=== PATIENT | male | born 1950 | race African-American/Black ===

== ENCOUNTER 2017-05-23 18:40 | Inpatient (IN) ==
[2017-05-23] MEDS ORDERED: ONDANSETRON 4 MG/2 ML VIAL IV STA (19:19)
[2017-05-23] MEDS ORDERED: SODIUM CHLORIDE 0.9% 500 ML IV STA (19:19)
[2017-05-23] MEDS ORDERED: HYDROmorphone 2 MG/1 ML VIAL IV STA (19:19)
[2017-05-23] MEDS ORDERED: PANTOPRAZOLE 40 MG VIAL IV STA (19:19)
[2017-05-23] MEDS ORDERED: cefTRIAXone 1,000 MG in SODIUM CHLORIDE 0.9% 100 ML IV STA (19:19)
--- NOTE | 2017-05-23 19:45 | Emergency Department Note ---
Chhaya Mondragon Rolonda, am scribing for, and in the presence of, Josr Greer MD 19:22. Percy Mondragon Charles R, MD, personally performed the services described in this documentation, ascribed by Fanny Shaver in my presence, and it is both accurate and complete 945 . Arrival - Arrival Chief Complaint: Abdominal / Flank Pain Stated Complaint: nausea/stomach cramps/sweating ED Nursing Triage Note: patient to triage with c/o of lower abdominal pain with nausea, denies vomiting, last bm 2 days ago. low back pain that started 15 min prior to triage. was seen by dr pritchett at [facility] [place] on fri and dx with an ulcer. Mode of Arrival: Wheelchair Limitations: No Limitations Source: Patient, Old Records Reviewed, RN Notes Reviewed Time Seen by Provider: 05/23/17 19:07 - History of Present Illness HPI Narrative: Pt is a 67 y/o male who presents to the ED via wheelchair with c/o lower abdominal pain with an onset of days ago. Pt has a PMHx of DM, Stomach ulcer, and aneurysm of the stomach; has a PSHx of Orthopedic surgery. Pt stated that he f/u with his PCP on the aneurysm months ago. He has associated sxs of back pain. He denied vomiting and constipation but confirms that last BM was x1 day ago. No other complain/pain in ED. Onset (ago): day(s) Consistency: constant Severity: moderate Severity scale (1-10): 4 Allergies/Adverse Reactions: Allergies Allergy/AdvReac Type Severity Reaction Status Date / Time lisinopril Allergy Swelling Verified 08/04/15 06:44 of Lip/Tongue/Throat Home Medications: Home Medications Medication Instructions Recorded Confirmed Type Insulin Glargine [Lantus] 40 unit SUBCUT BEDTIME 08/03/15 05/23/17 History Methadone 5 mg PO BID 08/03/15 05/23/17 History Omeprazole [Prilosec] 40 mg PO DAILY 08/03/15 05/23/17 History Dicyclomine HCl 10 mg PO TID PRN 05/23/17 05/23/17 History Gabapentin 300 mg PO TID 05/23/17 05/23/17 History Ibuprofen Tab [Motrin Tab] 800 mg PO Q8H PRN 05/23/17 05/23/17 History Losartan/Hydrochlorothiazide 1 each PO DAILY 05/23/17 05/23/17 History [Losartan-Hctz 100-25 mg Tab] Metformin HCl 1,000 mg PO BID 05/23/17 05/23/17 History Pravastatin Sodium 20 mg PO QPM 05/23/17 05/23/17 History hydrALAZINE TAB [Apresoline Tab] 50 mg PO TID PRN 05/23/17 05/23/17 History methIMAzole [Methimazole] 2.5 mg PO DAILY 05/23/17 05/23/17 History Review of System - Review of System 12 point system: reviewed and no additional remarkable complaints except as stated - Review of System Constitutional: Absent: chills, fever Eyes: Absent: pain Head/Ears/Nose/Throat: Absent: earache Respiratory: Absent: cough, respiratory distress Cardiovascular: Absent: chest pain, palpitations, dyspnea on exertion Gastrointestinal: Present: abdominal pain. Absent: nausea, vomiting Genitourinary male: Absent: urgency Musculoskeletal: Present: back pain. Absent: arm pain, leg pain, neck pain Skin: Absent: rash Neurological: Absent: headache, weakness Medical,Surgical,& Family Hx - Medical History Cardio: History of: Hypertension Psychological: No history of: Violent Behavior Neurology: No history of: Seizures Endocrine: History of: Diabetes Mellitus (IDDM) Gastrointestinal: History of: GERD, GI Problems (h/o gastric ulcer) Musculoskeletal: History of: Back/Neck Problems Hematology: No history of: Blood Transfusion Reaction Other: No history of: Anesthesia Reactions, Cancer - Surgical History Cardiac Surgeries: Patient Denies: Cardiac Catheterization HEENT Surgeries: Surgical HX of: Thyroid Surgery Patient denies: Tonsilectomy & Adenoidectomy Reproductive Surgeries: Patient denies;: Genitourinary Surgery Orthopedic Surgeries: Surgical HX of;: Orthopedic Surgery (disk surgery on back and neck) - Family History Family History: Denies;: Family Cancer - Social History Smoking Status: Unknown if ever smoked Frequency of Alcohol Use: None Type of Drug Use: None Exam Vital Signs: Vital Signs Temperature 101.6 F H 05/23/17 18:51 Pulse Rate 88 05/23/17 18:51 Respiratory Rate 20 05/23/17 18:51 Blood Pressure 129/70 05/23/17 18:51 O2 Sat by Pulse Oximetry 94 L 05/23/17 18:51 - General General appearance: alert, in no apparent distress - Head Head exam: Present: atraumatic, normocephalic - Eye Eye exam: Present: PERRL, EOMI - ENT ENT exam: Present: mucous membranes moist. Absent: mucous membranes dry - Neck Neck exam: Present: full ROM. Absent: tenderness - Chest Chest inspection: Present: symmetric chest wall rise. Absent: tenderness - Respiratory Respiratory exam: Present: normal lung sounds bilaterally. Absent: wheezes - Cardiovascular Cardiovascular exam: Present: regular rate, normal rhythm, normal heart sounds. Absent: bradycardia - Abdominal Exam Abdominal exam: Present: soft, tenderness (lower abdominal tenderness on both sides), normal bowel sounds - Extremities Exam Extremities exam: Present: full ROM. Absent: tenderness - Back Exam Back exam: Present: full ROM. Absent: normal inspection (scars on back from previous surgery), tenderness - Neurological Exam Neurological exam: Present: alert, oriented X3, CN II-XII intact - Psychiatric Psychiatric exam: Present: normal affect, normal mood - Skin Skin exam: Present: warm, dry, intact, normal color. Absent: rash Course - Consultations Consultation #1: Hospitalist will admit patient Time: 22:28 Results - Labs CBC & BMP: 05/23/17 20:10 05/23/17 20:10 Lab Results: I have reviewed the patients labs Labs: Laboratory Tests 05/23/17 20:20 Urine pH 5.0 Ur Specific [place] 1.036 H Urine Protein 30 Urine Glucose (UA) Negative Urine Ketones 5 Urine Blood Small Urine Nitrate Negative Urine Bilirubin Negative Urine Urobilinogen < 2.0 H Urine Leukocytes Negative Urine RBC 2 Urine WBC <1 Urine Mucus Occasional Ur Culture Indicated? Not indicated Laboratory Tests 05/23/17 20:10 Sodium 137 Potassium 4.2 Chloride 99 Carbon Dioxide 25 Anion Gap 17.2 H BUN 26 H GFR Calculation 82 BUN/Creatinine Ratio 21.00 H Glucose 212 H Albumin 2.8 L Globulin 4.0 H Albumin/Globulin Ratio 0.7 L - Diagnostic Findings Procedure: Abdominal x-ray: report reviewed by me (No acute abnormality.), Chest x-ray: report reviewed by me (Right perihilar infiltrate. This will need to be followed until clearing.), CT Abdomen and Pelvis: report reviewed by me ( 1. Distal abdominal aortic aneurysm, containing mixed plaque, measuring 3.6 cm in maximum diameter. 2. Enlarged prostate gland, heterogeneous. 3. Ill-defined area of low density adjacent to the gallbladder fossa. This does not appear to be cystic. This could represent an infiltrating mass, a vascular mass, or an area of focal fatty infiltration.) Disposition Clinical Impression: Fever, Abdominal pain, Right lower lobe pneumonia Case discussed with: patient, patient's family Disposition: Still a Patient Condition: Stable Time of Disposition: 22:29
[2017-05-23] MEDS ORDERED: PANTOPRAZOLE 40 MG VIAL IV ONE (19:48)
[2017-05-23] MEDS ORDERED: SODIUM CHLORIDE 0.9% 100 ML IV ONE (19:48)
[2017-05-23] MEDS ORDERED: ONDANSETRON 4 MG/2 ML VIAL ONE (19:48)
[2017-05-23] MEDS ORDERED: cefTRIAXone 1,000 MG VIAL ONE (19:48)
[2017-05-23] MEDS ORDERED: HYDROmorphone 2 MG/1 ML VIAL ONE (19:48)
--- NOTE | 2017-05-23 20:00 | CT Report ---
CT of the abdomen and pelvis with intravenous contrast. 100 cc Omni 350. No oral contrast administered. Indication: Generalized abdominal and pelvic pain. Axial images with sagittal and coronal reconstructions. No previous. The CT exam was performed using one or more of the following dose reduction techniques: Automated exposure control, adjustment of the mA and/or kV according to patient size, or use of iterative reconstruction technique. The heart is enlarged. There is coronary artery calcification. There are areas of scarring present within the lung bases. There is no pericardial or pleural effusion. Calcified lymph nodes are seen within the hilar and mediastinal regions. There is fatty infiltration of the liver. The liver size is normal. Adjacent to the gallbladder, there is an irregular mixed density area, nonspecific, measuring 15 x 20 mm. No adrenal enlargement is seen. No splenic abnormality is identified. The kidneys are normal in size, location, and contour. No hydronephrosis. No space-occupying masses. The urinary bladder presents a normal appearance. The prostate gland is enlarged and enhances heterogeneously. It measures 5.7 cm. It contains calcification. Prominent degenerative changes are noted within the spinal column, with pronounced degenerative endplate changes at L2-L3, a mild superior endplate compression fracture of L1, and diffusion across the disc space at L4-L5. 055 The pancreas is partially fatty replaced. There is calcific plaque present within the proximal abdominal aorta, extending into the origins of the celiac, SMA, and renal arteries. There is a distal abdominal aortic aneurysm. It measures 3.5 cm in the AP dimension and 3.6 cm in the transverse dimension. Within the retroperitoneum, adjacent to the aorta, multiple shotty lymph nodes are present. The common iliac arteries are also dilated, the right measuring 13 mm, and the left measuring 15 mm. Calcific plaque extends to the femoral arteries. No free air or free fluid is seen within the peritoneal cavity. The gastric contour is grossly normal. The loops of small intestine are not dilated. The terminal ileum and appendix present a normal appearance. The colon is not dilated. No colonic wall thickening. No diverticulosis or diverticulitis. Impression: 1. Distal abdominal aortic aneurysm, containing mixed plaque, measuring 3.6 cm in maximum diameter. 2. Enlarged prostate gland, heterogeneous. 3. Ill-defined area of low density adjacent to the gallbladder fossa. This does not appear to be cystic. This could represent an infiltrating mass, a vascular mass, or an area of focal fatty infiltration. PROCEDURE INTERPRETED AT [facility] DEPARTMENT OF RADIOLOGY Final Report Signed by: Dr. Leora Crenshaw
--- NOTE | 2017-05-23 20:00 | XRay Report ---
Portable chest. Indication: Abdominal pain. Comparison: September 27, 2011. The heart is normal in size. There is calcific plaque present within the aortic knob. The pulmonary vasculature is normal. There is a right perihilar infiltrate. No pneumothorax or pleural effusion. Surgical clips in the right neck. Impression: Right perihilar infiltrate. This will need to be followed until clearing. PROCEDURE INTERPRETED AT [facility] DEPARTMENT OF RADIOLOGY Final Report Signed by: Dr. Leora Crenshaw
--- NOTE | 2017-05-23 20:01 | XRay Report ---
2 view abdomen. Indication: Abdominal pain. The heart is enlarged. The liver and spleen are normal in size. Contrast material is seen within the collecting systems and urinary bladder. There is mass effect on the bladder from the prostate gland. The bowel gas pattern is normal. Degenerative changes are present within the spinal column. Impression: No acute abnormality. PROCEDURE INTERPRETED AT [facility] DEPARTMENT OF RADIOLOGY Final Report Signed by: Dr. Leora Crenshaw
[2017-05-23 20:24] LABS: Basophils % 0.1 % (0.0-0.8); Eosinophils % 0.1 % (0.00-10.9); Hematocrit 31.3 VOL% (42.0-52.0); Hemoglobin 10.2 GM/DL (14.0-18.0); Immature Granulocytes % 0.4 %; Immature Granulocytes Absolute 0.04 #; Lymphocytes # 1.3 10*3/uL (1.4-4.0); Lymphocytes % 13.4 % (21.2-54.2); Mean Corpuscular HGB Conc 32.6 GM/DL (32-36); Mean Corpuscular Hemoglobin 25 PG (27-34); Mean Corpuscular Volume 76.5 FL (87-102); Mean Platelet Volume 10.4 FL (9.6-12.0); Monocytes # 0.8 10*3/uL (0.11-0.8); Monocytes % 7.7 % (1.7-12.7); Neutrophils # 7.6 10*3/uL (1.4-7.4); Neutrophils % 78.3 % (38.7-73.9); Platelet Count 249 T/CUMM (130-400); Red Blood Count 4.09 MC/CUMM (3.8-5.5); Red Cell Distribution Width 14.2 % (9.3-17.3); White Blood Count 9.7 T/CUMM (4-12)
--- NOTE | 2017-05-23 20:27 | EKG Report ---
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
[2017-05-23 20:31] LABS: Apearance,Urine CLEAR (Clear); Bilirubin,Urine Negative (Negative); Blood, Urine Small mg/dL (Negative); Glucose,Urine (UA) Negative (Negative); Ketones,Urine 5 mg/dL (Negative); Mucus,Urine Occasional /LPF (Occasional); Nitrite,Urine Negative (Negative); Protein,Urine 30 MG/DL; RBC,Urine 2 /HPF (0-4); Urine Color Yellow (Yellow); Urine Specific Gravity 1.036 (1.001-1.035); Urine Urobilinogen < 2.0 EU/DL (0.2-1.0); WBC,Urine <1 /HPF (0-6)
[2017-05-23 20:57] LABS: Lactic Acid 1.5 MMOL/L (0.4-2.0)
[2017-05-23 20:58] LABS: Alanine Aminotransferase 26 U/L (16-61); Albumin 2.8 G/DL (3.4-5.0); Alkaline Phosphatase 97 U/L (45-117); Amylase 28 U/L (25-115); Aspartate Amino Transferase 35 U/L (0-37); Blood Urea Nitrogen 26 MG/DL (7-18); Calcium 8.9 MG/DL (8.5-10.1); Glucose 212 MG/DL (74-106); Magnesium 1.9 MG/DL (1.8-2.4); Osmolality,Calculated 283.8 MOS/KG (273-304); Potassium 4.2 MMOL/L (3.5-5.1); Sodium 137 MMOL/L (136-145); Total Protein 6.8 G/DL (6.4-8.3); Troponin I Only < 0.015 NG/ML (0.00-0.045)
[2017-05-23] MEDS ORDERED: ONDANSETRON 4 MG/2 ML VIAL IV PRN (23:07)
[2017-05-23] MEDS ORDERED: DEXTROSE 50% 25 GM/50 ML VIAL IV PRN (23:07)
[2017-05-23] MEDS ORDERED: GLUCAGON 1 MG VIAL IM PRN (23:07)
--- NOTE | 2017-05-23 23:27 | Hospitalist History & Physical ---
<Dakotah Gutierrez - Last Filed: 05/23/17 23:17> Assessment and Plan - Time spent with patient Time spent with patient: Less than 30 minutes (1) Abdominal pain Status: Acute Current Visit: Yes Qualifiers: Abdominal location: lower abdomen, unspecified Qualified Code(s): R10.30 - Lower abdominal pain, unspecified (2) Fever Status: Acute Current Visit: Yes Qualifiers: Fever type: unspecified Qualified Code(s): R50.9 - Fever, unspecified (3) Right lower lobe pneumonia Status: Acute Assessment and plan: The patient will be admitted inpatient to the medical surgical unit under the service of hospitalist. Laboratory findings and physical exam at time of admission. The patient to have Coumadin the patient stay. He will be rehydrated with normal saline at 100 mils an hour, will perform Accu-Cheks before meals and at bedtime with supplemental sliding scale continue his home Lantus 40 units nightly, will continue Rocephin 1 g IV daily and accommodation azithromycin 500 g IV daily. Blood cultures have been obtained. Vital signs every 4 hours. Home medications have been reconciled appropriately. Current Visit: Yes Qualifiers: Pneumonia type: due to unspecified organism Qualified Code(s): J18.1 - Lobar pneumonia, unspecified organism (4) Dehydration Status: Acute Current Visit: Yes History of Present Illness Chief complaint: ABD pain/Fever/SOB History of present illness: Mr. Casillas is a 67 year old male -Gabones[place] male with past medical history of diabetes, aortic aneurysm of the stomach, stomach ulcers, diabetic neuropathy , hypertension, and back surgery presents to the ED today with chief complaint of lower abdominal pain, fever, and shortness of breath. He reports Friday he began having chills and was able to get warm. He indicates that it has progressed all week having chills waking up sweating and waxing and waning shortness of breath. He reports he follows up outpatient for his aneurysm has a CT scan performed once a year. He denies nausea, vomiting, diarrhea, or constipation. He also reports that he has chest pain with deep inspiration mainly on the right side. Denies aggravating or relieving factors to this lower abdominal pain. He describes it as just a "irritating pain". Initial evaluation ED includes a chest x-ray this reveals right perihilar infiltrate, WBCs 9.7, BUN 26, glucose 212, albumin 2.8, UA benign, CT of the abdomen reveals distal abdominal aortic aneurysm measuring 3.6 cm in diameter, enlarged prostate, and ill-defined area of low density adjacent to the gallbladder fossa. The patient was initially treated in the ED with Rocephin 1 g IV along with 500 mL normal saline bolus. He will be admitted to the MedSurg unit under service of the hospitalist for further evaluation treatment. Home Medications Medication Instructions Recorded Confirmed Type Insulin Glargine [Lantus] 40 unit SUBCUT BEDTIME 08/03/15 05/24/17 History Methadone 5 mg PO BID 08/03/15 05/24/17 History Omeprazole [Prilosec] 40 mg PO DAILY 08/03/15 05/24/17 History Dicyclomine HCl 10 mg PO TID PRN 05/23/17 05/24/17 History Gabapentin 300 mg PO TID 05/23/17 05/24/17 History Ibuprofen Tab [Motrin Tab] 800 mg PO Q8H PRN 05/23/17 05/24/17 History Losartan/Hydrochlorothiazide 1 each PO DAILY 05/23/17 05/24/17 History [Losartan-Hctz 100-25 mg Tab] Metformin HCl 1,000 mg PO BID 05/23/17 05/24/17 History Pravastatin Sodium 20 mg PO QPM 05/23/17 05/24/17 History hydrALAZINE TAB [Apresoline Tab] 50 mg PO TID PRN 05/23/17 05/24/17 History methIMAzole [Methimazole] 2.5 mg PO DAILY 05/23/17 05/24/17 History Allergies Allergy/AdvReac Type Severity Reaction Status Date / Time lisinopril Allergy Swelling Verified 08/04/15 06:44 of Lip/Tongue/Throat Medical,Surgical,& Family Hx - Medical History Cardio: History of: Hypertension Psychological: No history of: Violent Behavior Neurology: No history of: Seizures Endocrine: History of: Diabetes Mellitus (IDDM) Gastrointestinal: History of: GERD, GI Problems (h/o gastric ulcer) Musculoskeletal: History of: Back/Neck Problems Hematology: No history of: Blood Transfusion Reaction Other: No history of: Anesthesia Reactions, Cancer - Surgical History Cardiac Surgeries: Patient Denies: Cardiac Catheterization HEENT Surgeries: Surgical HX of: Thyroid Surgery Patient denies: Tonsilectomy & Adenoidectomy Reproductive Surgeries: Patient denies;: Genitourinary Surgery Orthopedic Surgeries: Surgical HX of;: Orthopedic Surgery (disk surgery on back and neck) - Family History Family History: Reports;: Family Diabetes, Family Hypertension Denies;: Family Cancer - Social History Smoking Status: Former smoker Have you smoked in the last 12 months: No Frequency of Alcohol Use: None Type of Drug Use: None Marital Status: Lives With:: Spouse Functional capacity: uses cane/walker - Constitutional Constitutional: Present: fever(s), night sweats - Cardiovascular Cardiovascular: Present: dyspnea on exertion - Gastrointestinal Gastrointestinal: Present: as per HPI, abdominal pain Exam - Constitutional Vitals: Period Temp Pulse Resp BP Sys/Mccormack Pulse Ox Last 24 Hr 101.6 F-101.6 F 88-88 20-20 129-129/70-70 94 Results - Labs CBC & BMP: 05/23/17 20:10 05/23/17 20:10 Lab Results: I have reviewed the past 24 hour labs - Diagnostic Findings Procedure: Abdominal x-ray: report reviewed by me, Chest x-ray: report reviewed by me, CT Abdomen and Pelvis: report reviewed by me <Romulo Renee - Last Filed: 05/24/17 01:45> History of Present Illness History of present illness: Mr. Casillas is a 67 year old male Exam - Constitutional Vitals: Period Temp Pulse Resp BP Sys/Mccormack Pulse Ox Last 24 Hr 97.2 F-101.6 F 68-88 18-20 129-134/70-77 92-98 General appearance: normal weight - Head Head exam: Present: normal inspection - Eye Eye exam: Present: EOMI Pupils: Present: ELIZABETH - ENT ENT exam: Present: normal exam - Neck Neck exam: Present: normal inspection - Respiratory Respiratory exam: Present: clear to auscultation bilaterally - Cardiovascular Cardiovascular exam: Present: regular rate and rhythm - GI/Abdominal GI/Abdominal exam: Present: normal bowel sounds - Extremities Exam Extremities exam: Present: normal inspection - Back Exam Back exam: Present: normal inspection - Neurological Exam Neurological exam: Present: alert - Psychiatric Psychiatric exam: Present: normal affect - Skin Skin exam: Present: normal color Results - Labs CBC & BMP: 05/23/17 20:10 05/23/17 20:10
[2017-05-24] MEDS: ACETAMINOPHEN 325 MG TABLET PO PRN ×2 (00:31→18:09)
[2017-05-24] MEDS: SODIUM CHLORIDE 0.9% 1,000 ML IV SCH ×2 (00:32→11:42)
[2017-05-24] MEDS: AZITHROMYCIN INJ 500 MG in SODIUM CHLORIDE 0.9% 250 ML IV SCH (00:33)
[2017-05-24 06:29] LABS: Basophils % 0.2 % (0.0-0.8); Eosinophils % 0.1 % (0.00-10.9); Hematocrit 28.8 VOL% (42.0-52.0); Hemoglobin 9.2 GM/DL (14.0-18.0); Immature Granulocytes % 0.4 %; Immature Granulocytes Absolute 0.03 #; Lymphocytes # 1.8 10*3/uL (1.4-4.0); Mean Corpuscular HGB Conc 31.9 GM/DL (32-36); Mean Corpuscular Hemoglobin 25 PG (27-34); Mean Corpuscular Volume 76.6 FL (87-102); Mean Platelet Volume 10.1 FL (9.6-12.0); Monocytes # 0.8 10*3/uL (0.11-0.8); Monocytes % 9.8 % (1.7-12.7); Neutrophils # 5.5 10*3/uL (1.4-7.4); Neutrophils % 67.5 % (38.7-73.9); Platelet Count 229 T/CUMM (130-400); Red Blood Count 3.76 MC/CUMM (3.8-5.5); Red Cell Distribution Width 14.2 % (9.3-17.3); White Blood Count 8.1 T/CUMM (4-12)
[2017-05-24 07:08] LABS: Albumin 2.5 G/DL (3.4-5.0); Bilirubin,Total 0.7 MG/DL (0.2-1.0); Calcium 8.6 MG/DL (8.5-10.1); Osmolality,Calculated 283.5 MOS/KG (273-304); Potassium 3.9 MMOL/L (3.5-5.1); Total Protein 6.2 G/DL (6.4-8.3)
[2017-05-24] MEDS: METHADONE 10 MG TABLET PO SCH ×2 (08:29→21:24)
[2017-05-24] MEDS: methIMAzole 5 MG TABLET PO SCH (08:30)
[2017-05-24] MEDS: GABAPENTIN 300 MG CAPSULE PO SCH ×3 (08:31→21:25)
[2017-05-24] MEDS: PANTOPRAZOLE 40 MG TABLET PO SCH (08:31)
[2017-05-24] MEDS: INSULIN REGULAR 100 UNIT/ML SUBCUT SCH ×4 (08:32→21:24)
[2017-05-24] MEDS: ENOXAPARIN 40 MG/0.4 ML SYRINGE SUBCUT SCH (08:33)
[2017-05-24] MEDS ORDERED: LOSARTAN/HCTZ 50-12.5 MG TABLET PO SCH (09:00)
[2017-05-24] MEDS: DICYCLOMINE 10 MG CAPSULE PO PRN (11:41)
--- NOTE | 2017-05-24 12:00 | Hospitalist Progress Note ---
Assessment and Plan (1) Right lower lobe pneumonia Status: Acute Assessment and plan: Continue azithromycin and Rocephin, will start duo nebs Current Visit: Yes Qualifiers: Pneumonia type: due to unspecified organism Qualified Code(s): J18.1 - Lobar pneumonia, unspecified organism (2) AAA (abdominal aortic aneurysm) Status: Acute Assessment and plan: incidentally noted on abd ct. will need to be monitored and repair when greater than five cm, currently 3.6 cm Current Visit: Yes (3) Dehydration Status: Acute Assessment and plan: Remove the hydrochlorothiazide out of his blood pressure medicines, cont gentle hydration Current Visit: Yes (4) Hypertension Status: Acute Assessment and plan: change to losartan 100 mg daily Current Visit: Yes (5) Chronic pain Status: Acute Assessment and plan: Continue methadone 5 mg twice daily Current Visit: Yes (6) Insulin dependent diabetes mellitus Status: Acute Assessment and plan: Hemoglobin A1c, continue insulin sliding scale, continue Lantus 40 units at bedtime Current Visit: Yes (7) Hyperthyroidism Status: Acute Assessment and plan: cont tapezole, check tsh and free T4. Current Visit: Yes Hospitalist: Subjective Interval history: Patient's says he has not been eating much but that is most likely due to him being sick. Exam - Constitutional Vitals: Period Temp Pulse Resp BP Sys/Mccormack Pulse Ox Last 24 Hr 97.0 F-101.6 F 52-88 18-20 129-155/61-81 92-98 Exam: Heart Rate-[RRR] Lungs-[rhonchi on right and diminished GI-[+bs soft, NT] Ext-[no edema] Neuro [Motor 5/5], [alert and oriented times 3] psych [normal mood and flat affect] General [no acute distress] Results - Labs CBC & BMP: 05/24/17 05:39 05/24/17 05:39 Lab Results: I have reviewed the past 24 hour labs - Diagnostic Findings Procedure: Chest x-ray: report reviewed by me (Right perihilar infiltrate), CT Abdomen and Pelvis: report reviewed by me (Distal aortic aneurysm measuring 3.6 cm, enlarged prostate)
[2017-05-24 12:34] LABS: Free T4 (Free Thyroxine) 1.35 NG/DL (0.76-1.46); Thyroid Stimulating Hormone 1.78 uIU/ml (0.358-3.74)
[2017-05-24] MEDS: ALBUTEROL/IPRATROPIUM 3 ML NEB RESP TX SCH ×2 (13:46→19:30)
[2017-05-24] MEDS: SODIUM CHLORIDE 0.45% 1,000 ML IV SCH (18:07)
[2017-05-24] MEDS ORDERED: INSULIN GLARGINE 100 UNIT/ML SUBCUT SCH (21:00)
[2017-05-24] MEDS: cefTRIAXone 1,000 MG in SODIUM CHLORIDE 0.9% 100 ML IV SCH (21:21)
[2017-05-24] MEDS: PRAVASTATIN 20 MG TABLET PO SCH (21:25)
[2017-05-25] MEDS: AZITHROMYCIN INJ 500 MG in SODIUM CHLORIDE 0.9% 250 ML IV SCH
[2017-05-25] MEDS: ALBUTEROL/IPRATROPIUM 3 ML NEB RESP TX SCH ×4 (01:04→18:55)
[2017-05-25] MEDS: SODIUM CHLORIDE 0.45% 1,000 ML IV SCH ×2 (07:35→08:38)
[2017-05-25] MEDS: PANTOPRAZOLE 40 MG TABLET PO SCH (08:39)
[2017-05-25] MEDS: LOSARTAN 50 MG TABLET PO SCH (08:39)
[2017-05-25] MEDS: ENOXAPARIN 40 MG/0.4 ML SYRINGE SUBCUT SCH (08:39)
[2017-05-25] MEDS: methIMAzole 5 MG TABLET PO SCH (08:39)
[2017-05-25] MEDS: METHADONE 10 MG TABLET PO SCH ×2 (08:41→21:36)
[2017-05-25] MEDS: GABAPENTIN 300 MG CAPSULE PO SCH ×3 (08:41→21:36)
[2017-05-25] MEDS: INSULIN REGULAR 100 UNIT/ML SUBCUT SCH ×4 (08:42→21:37)
[2017-05-25] MEDS ORDERED: MAGNESIUM HYDROXIDE SUSP 30 ML UDCUP PO ONE ×2 (09:34→11:00)
--- NOTE | 2017-05-25 11:46 | Hospitalist Progress Note ---
Assessment and Plan (1) Right lower lobe pneumonia Status: Acute Assessment and plan: Continue duo nebs and antibiotics Current Visit: Yes Qualifiers: Pneumonia type: due to unspecified organism Qualified Code(s): J18.1 - Lobar pneumonia, unspecified organism (2) AAA (abdominal aortic aneurysm) Status: Acute Assessment and plan: incidentally noted on abd ct. will consult Dr. RAMIREZ in a.m. Current Visit: Yes (3) Dehydration Status: Acute Assessment and plan: resolved Current Visit: Yes (4) Hypertension Status: Acute Assessment and plan: controlled Current Visit: Yes (5) Chronic pain Status: Acute Assessment and plan: Continue methadone 5 mg twice daily Current Visit: Yes (6) Insulin dependent diabetes mellitus Status: Acute Assessment and plan: Hemoglobin A1c 9.7, increase lantus but switch to daytime Current Visit: Yes (7) Hyperthyroidism Status: Acute Assessment and plan: cont tapezole, check tsh and free T4 within normal range Current Visit: Yes Hospitalist: Subjective Interval history: Patient eating better today but still had not had a bowel movement. Exam - Constitutional Vitals: Period Temp Pulse Resp BP Sys/Mccormack Pulse Ox Last 24 Hr 97.2 F-99.4 F 55-85 15-21 119-157/58-77 94-99 Exam: Heart Rate-[RRR] Lungs-[diminished GI-[+bs soft, NT] Ext-[no edema] Neuro [Motor 5/5], [alert and oriented times 3] psych [normal mood and flat affect] General [no acute distress] Results - Labs CBC & BMP: 05/24/17 05:39 05/24/17 05:39 Lab Results: I have reviewed the past 24 hour labs Labs: Blood cultures negative no growth
[2017-05-25] MEDS: ACETAMINOPHEN 325 MG TABLET PO PRN ×2 (12:24→21:36)
[2017-05-25] MEDS: PRAVASTATIN 20 MG TABLET PO SCH (21:36)
[2017-05-25] MEDS: cefTRIAXone 1,000 MG in SODIUM CHLORIDE 0.9% 100 ML IV SCH (21:39)
[2017-05-26] MEDS: ALBUTEROL/IPRATROPIUM 3 ML NEB RESP TX SCH ×4 (00:28→19:14)
[2017-05-26] MEDS: AZITHROMYCIN INJ 500 MG in SODIUM CHLORIDE 0.9% 250 ML IV SCH (00:33)
[2017-05-26] MEDS: INSULIN REGULAR 100 UNIT/ML SUBCUT SCH ×4 (07:42→20:57)
[2017-05-26] MEDS: METHADONE 10 MG TABLET PO SCH ×2 (09:18→20:55)
[2017-05-26] MEDS: methIMAzole 5 MG TABLET PO SCH (09:40)
[2017-05-26] MEDS: PANTOPRAZOLE 40 MG TABLET PO SCH (09:41)
[2017-05-26] MEDS: LOSARTAN 50 MG TABLET PO SCH (09:41)
[2017-05-26] MEDS: GABAPENTIN 300 MG CAPSULE PO SCH ×3 (09:41→20:55)
[2017-05-26] MEDS: INSULIN GLARGINE 100 UNIT/ML SUBCUT SCH (09:41)
[2017-05-26] MEDS: ENOXAPARIN 40 MG/0.4 ML SYRINGE SUBCUT SCH (09:43)
--- NOTE | 2017-05-26 10:29 | Hospitalist Progress Note ---
Assessment and Plan (1) Right lower lobe pneumonia Status: Acute Assessment and plan: Patient is being treated for pneumonia he seemed to be comfortable without any distress blood cultures been so far negative we will continue antibiotics for now Current Visit: Yes Qualifiers: Pneumonia type: due to unspecified organism Qualified Code(s): J18.1 - Lobar pneumonia, unspecified organism (2) Abnormal finding on imaging Status: Acute Assessment and plan: Abnormal CT abdomen report as mentioned above will wait for evaluation by Dr. Borja could go ahead and order ultrasound liver to evaluate Current Visit: Yes (3) Anemia Status: Chronic Assessment and plan: Anemia seem to be chronic I will go ahead and order stool Hemoccult and anemia profile. Current Visit: Yes (4) AAA (abdominal aortic aneurysm) Status: Chronic Assessment and plan: Followed by Dr. Borja Current Visit: Yes (5) Hypertension Status: Chronic Assessment and plan: Controlled Current Visit: Yes (6) Insulin dependent diabetes mellitus Status: Chronic Assessment and plan: Continue blood sugar monitoring with current insulin regimen Current Visit: Yes Hospitalist: Subjective Interval history: is a 67-year-old with multiple medical problems including diabetes mellitus , AAA, peptic ulcer disease diabetic neuropathy, chronic back problem and hypertension. He was admitted on 05/23/2017 with lower abdominal pain and fever. He had temperature 101.6 in the ER. His back on admission was 9.7 urinalysis was negative for any suspected infection. He underwent evaluation with abdominal x-ray which was without any acute abnormalities. Checks his chest x- ray was consistent with a right perihilar infiltrate but he did not have any respiratory symptoms. He was further evaluated with abdominal CT scan which is reported to have distal abdominal aortic aneurysm measuring 3.6 cm. Enlarged prostate gland and an ill-defined area of low density adjacent to the gallbladder fossa which reported did not appear to be cystic. Patient was followed by Dr. Borja and he was seen on last week. He is being consulted and evaluation pending. Patient was started on Zithromax and ceftriaxone for pneumonia. He has been symptomatically improved denied any cough fever or dyspnea. Abdominal pain has resolved now Exam - Constitutional Vitals: Period Temp Pulse Resp BP Sys/Mccormack Pulse Ox Last 24 Hr 98.3 F-99.3 F 57-92 16-20 112-186/58-95 95-99 General appearance: no acute distress - Respiratory Respiratory exam: Present: clear to auscultation bilaterally. Absent: rales, rhonchi - Cardiovascular Cardiovascular exam: Present: regular rate and rhythm. Absent: JVD, tachycardia - GI/Abdominal GI/Abdominal exam: Present: normal bowel sounds, soft. Absent: distended, mass , tenderness - Extremities Exam Extremities exam: Present: normal inspection. Absent: edema - Neurological Exam Neurological exam: Present: alert, oriented X3 Results - Labs CBC & BMP: 05/24/17 05:39 05/24/17 05:39 Lab Results: I have reviewed the past 24 hour labs
--- NOTE | 2017-05-26 10:55 | General Surgery Consult Note ---
History of Present Illness Chief complaint: asymptomnatic AAA History of present illness: Mr. Lanza is a 67 year old male Mr. lanza is a 67-year-old man admitted with lower abdominal pain which was acute and seems to be resolving. During his evaluation a CT scan is been done and it does indicate a small abdominal aortic aneurysm measuring less than 4 cm diameter. I have actually seen Mr. lanza earlier this year with ultrasound and noted to small a abdominal aortic aneurysm he was followed by Dr. Davis for several years prior to this. This appears to be a stable asymptomatic small abdominal aortic aneurysm that requires no further evaluation at this time. He is in my system to be followed up in November 2017 with ultrasound. Home Medications Medication Instructions Recorded Confirmed Type Insulin Glargine [Lantus] 40 unit SUBCUT BEDTIME 08/03/15 05/24/17 History Methadone 5 mg PO BID 08/03/15 05/24/17 History Omeprazole [Prilosec] 40 mg PO DAILY 08/03/15 05/24/17 History Dicyclomine HCl 10 mg PO TID PRN 05/23/17 05/24/17 History Gabapentin 300 mg PO TID 05/23/17 05/24/17 History Ibuprofen Tab [Motrin Tab] 800 mg PO Q8H PRN 05/23/17 05/24/17 History Losartan/Hydrochlorothiazide 1 each PO DAILY 05/23/17 05/24/17 History [Losartan-Hctz 100-25 mg Tab] Metformin HCl 1,000 mg PO BID 05/23/17 05/24/17 History Pravastatin Sodium 20 mg PO QPM 05/23/17 05/24/17 History hydrALAZINE TAB [Apresoline Tab] 50 mg PO TID PRN 05/23/17 05/24/17 History methIMAzole [Methimazole] 2.5 mg PO DAILY 05/23/17 05/24/17 History Allergies Allergy/AdvReac Type Severity Reaction Status Date / Time lisinopril Allergy Swelling Verified 08/04/15 06:44 of Lip/Tongue/Throat Medical,Surgical,& Family Hx - Medical History Cardio: History of: Hypertension Psychological: No history of: Violent Behavior Neurology: No history of: Seizures Endocrine: History of: Diabetes Mellitus (IDDM) Gastrointestinal: History of: GERD, GI Problems (h/o gastric ulcer) Musculoskeletal: History of: Back/Neck Problems Hematology: No history of: Blood Transfusion Reaction Other: No history of: Anesthesia Reactions, Cancer - Surgical History Cardiac Surgeries: Patient Denies: Cardiac Catheterization Thoracic Surgeries: Patient denies;: Organ Transplant Neurologic Surgeries: Patient denies: Neurologic Surgery HEENT Surgeries: Surgical HX of: Thyroid Surgery Patient denies: Tonsilectomy & Adenoidectomy Reproductive Surgeries: Patient denies;: Genitourinary Surgery Orthopedic Surgeries: Surgical HX of;: Orthopedic Surgery (disk surgery on back and neck) - Family History Family History: Reports;: Family Diabetes (mother), Family Hypertension (mother) Denies;: Family Cancer - Social History Smoking Status: Never smoker Frequency of Alcohol Use: None Type of Drug Use: None Exam - Constitutional Vitals: Period Temp Pulse Resp BP Sys/Mccormack Pulse Ox Last 24 Hr 98.3 F-99.3 F 57-92 16-20 112-186/58-95 95-99 Results - Labs CBC & BMP: 05/24/17 05:39 05/24/17 05:39
[2017-05-26] MEDS: DICYCLOMINE 10 MG CAPSULE PO PRN (17:51)
[2017-05-26] MEDS: PRAVASTATIN 20 MG TABLET PO SCH (20:55)
[2017-05-26] MEDS: cefTRIAXone 1,000 MG in SODIUM CHLORIDE 0.9% 100 ML IV SCH (21:12)
[2017-05-27] MEDS: ALBUTEROL/IPRATROPIUM 3 ML NEB RESP TX SCH ×4 (00:46→19:13)
[2017-05-27] MEDS: AZITHROMYCIN INJ 500 MG in SODIUM CHLORIDE 0.9% 250 ML IV SCH (02:37)
[2017-05-27 05:35] LABS: Basophils % 0.4 % (0.0-0.8); Eosinophils # 0.1 10*3/uL (0.0-0.87); Eosinophils % 1.4 % (0.00-10.9); Hematocrit 27.7 VOL% (42.0-52.0); Hemoglobin 8.9 GM/DL (14.0-18.0); Immature Granulocytes % 0.7 %; Immature Granulocytes Absolute 0.05 #; Lymphocytes % 27.5 % (21.2-54.2); Mean Corpuscular HGB Conc 32.1 GM/DL (32-36); Mean Corpuscular Hemoglobin 25 PG (27-34); Mean Corpuscular Volume 76.3 FL (87-102); Mean Platelet Volume 9.4 FL (9.6-12.0); Monocytes # 0.6 10*3/uL (0.11-0.8); Monocytes % 7.6 % (1.7-12.7); Neutrophils # 4.5 10*3/uL (1.4-7.4); Neutrophils % 62.4 % (38.7-73.9); Platelet Count 341 T/CUMM (130-400); Red Blood Count 3.63 MC/CUMM (3.8-5.5); Red Cell Distribution Width 14.1 % (9.3-17.3); White Blood Count 7.2 T/CUMM (4-12)
[2017-05-27 06:12] LABS: Calcium 8.6 MG/DL (8.5-10.1); Ferritin 61.4 ng/ml (26-388); Osmolality,Calculated 281.1 MOS/KG (273-304); Potassium 3.6 MMOL/L (3.5-5.1)
[2017-05-27 06:21] LABS: Folate 19.2 NG/ML (5.4-24.0); Vitamin B12 751 PG/ML (211-911)
--- NOTE | 2017-05-27 07:45 | Ultrasound Report ---
US liver Indication: Right upper quadrant abdominal pain. Comparison: CT abdomen pelvis dated 05/23/2017. Technique: Multiple longitudinal and transverse real-time sonographic images of the right upper quadrant of the abdomen are obtained. Findings: The liver measures 13.7 cm and demonstrates normal echogenicity without focal abnormality. The gallbladder is normal in size and demonstrates no wall thickening, abnormal intraluminal echoes, or pericholecystic fluid. The sonographic Haque's sign is negative. The common duct measures 0.6 cm in diameter and there is no evidence of intrahepatic ductal dilation. Visualized portion of the pancreas appears unremarkable. Right kidney measures 11.4 cm craniocaudal dimension and otherwise appears unremarkable. There is no ascites. IMPRESSION: No acute sonographic abnormality. No focal lesions are identified within the region of the liver/gallbladder fossa as previously questioned on CT images. Ultrasound images were captured and stored. PROCEDURE INTERPRETED AT [facility] DEPARTMENT OF RADIOLOGY Final Report Signed by: Nehemias Ann
[2017-05-27 08:12] LABS: Hemoglobin A1 (Alkaline) 97.5 % (96.5-98.5); Hemoglobin A2 (Alkaline) 2.5 % (1.5-3.5)
[2017-05-27 08:30] LABS: Sedimentation Rate-Westergren 121 MM/HR (0-20)
[2017-05-27] MEDS: methIMAzole 5 MG TABLET PO SCH (09:21)
[2017-05-27] MEDS: LOSARTAN 50 MG TABLET PO SCH (09:21)
[2017-05-27] MEDS: PANTOPRAZOLE 40 MG TABLET PO SCH (09:21)
[2017-05-27] MEDS: GABAPENTIN 300 MG CAPSULE PO SCH ×3 (09:21→20:44)
[2017-05-27] MEDS: ENOXAPARIN 40 MG/0.4 ML SYRINGE SUBCUT SCH (09:22)
[2017-05-27] MEDS: INSULIN GLARGINE 100 UNIT/ML SUBCUT SCH (09:22)
[2017-05-27] MEDS: INSULIN REGULAR 100 UNIT/ML SUBCUT SCH ×4 (09:24→20:41)
[2017-05-27] MEDS: METHADONE 10 MG TABLET PO SCH ×2 (11:11→20:41)
--- NOTE | 2017-05-27 11:14 | Hospitalist Progress Note ---
Assessment and Plan (1) Right lower lobe pneumonia Status: Acute Assessment and plan: Patient is being treated for pneumonia blood cultures no growth so far responding well to antibiotic Current Visit: Yes Qualifiers: Pneumonia type: due to unspecified organism Qualified Code(s): J18.1 - Lobar pneumonia, unspecified organism (2) Abnormal finding on imaging Status: Acute Assessment and plan: Patient had abnormal finding on the CT scan of the abdomen. AAA was noted and some abnormal ill-defined area adjacent to gallbladder fossa patient had ultrasound of the abdomen which was normal Current Visit: Yes (3) Anemia Status: Chronic Assessment and plan: Anemia seem to be chronic I will go ahead and order stool Hemoccult and anemia profile. Current Visit: Yes (4) AAA (abdominal aortic aneurysm) Status: Chronic Assessment and plan: Seen by Dr. Borja and she is known to him and he plan to follow-up outpatient no intervention needed Current Visit: Yes (5) Hypertension Status: Chronic Assessment and plan: Blood pressure reading acceptable Current Visit: Yes (6) Insulin dependent diabetes mellitus Status: Chronic Assessment and plan: Continue blood sugar monitoring with current insulin regimen Current Visit: Yes (7) Elevated erythrocyte sedimentation rate Status: Acute Assessment and plan: Patient had lab work done for anemia workup. Noted he has elevated ESR... This is a nonspecific finding not sure what is the etiology patient is explained that could be due to infection and is being treated for pneumonia it could be because of the malignancy or any inflammatory disorder. Due to some abnormality in his CT abdomen I would like to get MRI to look that area better. The ESR will be repeated tomorrow. I will also obtain CRP Current Visit: Yes (8) Anemia Status: Acute Assessment and plan: Patient has chronic anemia seems like patient in has chronic anemia and had been worked up with endoscopy. Workup suggested patient has bone marrow suppression noted he is on methimazole for hyperthyroidism likely contributing to it causing/contributing to it I will repeat hemoglobin hematocrit tomorrow and also consult hematology Current Visit: Yes Hospitalist: Subjective Interval history: is a 67-year-old with multiple medical problems including diabetes mellitus , AAA, peptic ulcer disease diabetic neuropathy, chronic back problem and hypertension. He was admitted on 05/23/2017 with lower abdominal pain and fever. He had temperature 101.6 in the ER. His wbc count on admission was 9.7 urinalysis was negative for any suspected infection. He underwent evaluation with abdominal x-ray which was without any acute abnormalities. His chest x-ray was consistent with a right perihilar infiltrate but he did not have any respiratory symptoms. He was further evaluated with abdominal CT scan which is reported to have distal abdominal aortic aneurysm measuring 3.6 cm. Enlarged prostate gland and an ill-defined area of low density adjacent to the gallbladder fossa which reported did not appear to be cystic. Patient has been followed by Dr. Borja for abdominal aneurysm and he was seen by him week. g. Patient was started on Zithromax and ceftriaxone for pneumonia. He has been symptomatically improved denied any cough fever or dyspnea. Abdominal pain has resolved now. Patient is afebrile and without any acute symptoms Exam - Constitutional Vitals: Period Temp Pulse Resp BP Sys/Mccormack Pulse Ox Last 24 Hr 97.9 F-100.1 F 59-87 16-20 116-143/60-83 90-99 General appearance: no acute distress - Respiratory Respiratory exam: Present: clear to auscultation bilaterally. Absent: rales, rhonchi - Cardiovascular Cardiovascular exam: Present: regular rate and rhythm. Absent: JVD, tachycardia - GI/Abdominal GI/Abdominal exam: Present: normal bowel sounds, soft. Absent: distended, mass , tenderness - Extremities Exam Extremities exam: Present: normal inspection. Absent: edema - Neurological Exam Neurological exam: Present: alert, oriented X3 Results - Labs CBC & BMP: 05/27/17 04:43 05/27/17 04:43 Lab Results: I have reviewed the past 24 hour labs
--- NOTE | 2017-05-27 12:22 | Discharge Summary ---
Diagnosis - Discharge Diagnosis (1) Right lower lobe pneumonia Status: Acute (2) Abnormal finding on imaging Status: Acute (3) Anemia Status: Chronic (4) AAA (abdominal aortic aneurysm) Status: Chronic (5) Hypertension Status: Chronic (6) Insulin dependent diabetes mellitus Status: Chronic Discharge Plan - Discharge Data Disposition: Disch To Home/Self Care Condition at Discharge: Stable - Discharge Medications No Action Omeprazole [Prilosec] 40 mg PO DAILY Methadone 5 mg PO BID Insulin Glargine [Lantus] 40 unit SUBCUT BEDTIME hydrALAZINE TAB [Apresoline Tab] 50 mg PO TID PRN PRN Reason: blood pressue Losartan/Hydrochlorothiazide [Losartan-Hctz 100-25 mg Tab] 1 each PO DAILY Pravastatin Sodium 20 mg PO QPM Ibuprofen Tab [Motrin Tab] 800 mg PO Q8H PRN PRN Reason: Pain Dicyclomine HCl 10 mg PO TID PRN PRN Reason: Abdominal Pain Gabapentin 300 mg PO TID Metformin HCl 1,000 mg PO BID methIMAzole [Methimazole] 2.5 mg PO DAILY - Follow Up or Referral - Forms/Instructions Exam - Constitutional Vitals: Period Temp Pulse Resp BP Sys/Mccormack Pulse Ox Last 24 Hr 98.0 F-100.1 F 59-87 16-20 116-143/60-83 92-99 Discharge Results Procedures and tests throughout hospitalization: Pending Orders 05/23/17 20:18 Blood Culture Stat 05/26/17 10:36 Occult Blood, Stool Routine Labs on day of discharge: Labs from last 24 hours 05/27/17 05/27/17 05/27/17 12:13 04:43 04:43 WBC RBC Hgb Hct MCV MCH MCHC RDW Plt Count MPV Neut % (Auto) Lymph % (Auto) Anderson % (Auto) Eos % (Auto) Baso % (Auto) Neut # (Auto) Lymph # (Auto) Anderson # (Auto) Eos # (Auto) Baso # (Auto) Immature Gran % Nucleated RBC % Immature Gran # Nucleated RBCs # Anemia Panel Interp ESR Westergren Absolute Retic Percent Retic Retic Hgb Equivalent Hemoglobin A1 97.5 Hemoglobin A2 2.5 Hgb ELP Interp See comment Sodium Potassium Chloride Carbon Dioxide Anion Gap BUN Creatinine GFR Calculation BUN/Creatinine Ratio Glucose POC Glucose 158 H Calculated Osmolality Calcium Ferritin Vitamin B12 751 Folate 19.2 MITCH (IgG-AHG) Negative MITCH, Polyspecific Negative 05/27/17 05/27/17 05/26/17 04:43 04:43 20:47 WBC 7.2 RBC 3.63 L Hgb 8.9 L Hct 27.7 L MCV 76.3 L MCH 25 L MCHC 32.1 RDW 14.1 Plt Count 341 D MPV 9.4 L Neut % (Auto) 62.4 Lymph % (Auto) 27.5 Anderson % (Auto) 7.6 Eos % (Auto) 1.4 Baso % (Auto) 0.4 Neut # (Auto) 4.5 Lymph # (Auto) 2.0 Anderson # (Auto) 0.6 Eos # (Auto) 0.1 Baso # (Auto) 0.0 Immature Gran % 0.7 Nucleated RBC % 0.0 Immature Gran # 0.05 Nucleated RBCs # 0.00 Anemia Panel Interp See comment ESR Westergren 121 H Absolute Retic 0.0 Percent Retic 1.2 Retic Hgb Equivalent 26.0 L Hemoglobin A1 Hemoglobin A2 Hgb ELP Interp Sodium 142 Potassium 3.6 Chloride 105 Carbon Dioxide 28 Anion Gap 12.6 BUN 9 Creatinine 0.80 GFR Calculation 121 BUN/Creatinine Ratio 11.00 Glucose 98 POC Glucose 316 H Calculated Osmolality 281.1 Calcium 8.6 Ferritin 61.4 Vitamin B12 Folate MITCH (IgG-AHG) MITCH, Polyspecific 05/26/17 16:06 WBC RBC Hgb Hct MCV MCH MCHC RDW Plt Count MPV Neut % (Auto) Lymph % (Auto) Anderson % (Auto) Eos % (Auto) Baso % (Auto) Neut # (Auto) Lymph # (Auto) Anderson # (Auto) Eos # (Auto) Baso # (Auto) Immature Gran % Nucleated RBC % Immature Gran # Nucleated RBCs # Anemia Panel Interp ESR Westergren Absolute Retic Percent Retic Retic Hgb Equivalent Hemoglobin A1 Hemoglobin A2 Hgb ELP Interp Sodium Potassium Chloride Carbon Dioxide Anion Gap BUN Creatinine GFR Calculation BUN/Creatinine Ratio Glucose POC Glucose 101 Calculated Osmolality Calcium Ferritin Vitamin B12 Folate MITCH (IgG-AHG) MITCH, Polyspecific Preliminary micro results at discharge 05/23/17 20:18 Blood Culture - Preliminary Blood No growth at 3 days 05/23/17 20:10 Blood Culture - Preliminary Blood No growth at 3 days DS: Provider Date of admission: 05/23/17 23:10 Primary care physician: . No PCP Attending physician on admission: Romulo Renee MD Consults: 05/25/17 11:46 Consult to Physician [CONS] Routine Comment: AAA 3.6 cm Consulting Provider: Marlon Borja When should Consulting Provider be notified: In am Person Notified: JELANI Date Notified: 05/26/17 Time Notified: 09:24 Discharging clinician: Michelet Oliveira MD
[2017-05-27] MEDS: ACETAMINOPHEN 325 MG TABLET PO PRN (18:40)
[2017-05-27] MEDS: PRAVASTATIN 20 MG TABLET PO SCH (20:39)
[2017-05-28] MEDS: ALBUTEROL/IPRATROPIUM 3 ML NEB RESP TX SCH ×3 (00:33→13:07)
[2017-05-28 05:10] LABS: Hematocrit 31.3 VOL% (42.0-52.0); Hemoglobin 9.8 GM/DL (14.0-18.0)
[2017-05-28] MEDS: INSULIN REGULAR 100 UNIT/ML SUBCUT SCH ×2 (08:36→13:02)
--- NOTE | 2017-05-28 09:44 | Magnetic Resonance Report ---
Exam: MR abdomen wo/w con Date: 05/28/2017 12:26 PM Indication: Abnormal CT scan, enlarged head of the pancreas Comparison: CT 05/23/2017 and previous ultrasound 05/27/2017. Technical 1.5 Lesa magnet Axial sagittal coronal imaging and MRCP imaging obtained with and without 15 cc of Dotarem gadolinium enhancement. Findings: No obvious pleural effusion the lung bases. The liver reveals normal appearance. No obvious focal mass lesion in the liver. Hepatic and portal veins are otherwise unremarkable. The spleen exhibits normal signal characteristics. The gallbladder is slightly distended with a small junctional fold present. No obvious filling defect clearly seen in the gallbladder. The cystic duct is slightly prominent. The pancreas reveals no obvious focal mass lesion clearly demonstrated. Pancreatic duct and the common bile duct or not otherwise abnormal the left and right biliary radicals are intact. The ampulla is unremarkable. There is a slightly prominent cystic duct present at its origin and then tapers to normal size. The kidneys are unremarkable. The aorta is mildly enlarged measuring 3.4 cm x 3.6 cm. The kidneys exhibit normal appearance. No contrast enhancing lesions present. Lumbosacral spine reveal some bulging of disc present in the region of proximal L3-4 or L4-5 not otherwise clarified on today's study. Impression: 1. Slightly distended gallbladder with prominence of the proximal cystic duct with suggestion of a small tiny calculus questioned at the origin of the cystic duct not otherwise clarified. Image slice #65 axial LAVA BH sequence. 2. Minimal fatty infiltration of the pancreas without focal enlargement of the pancreas or intra or extrahepatic duct dilatation. 3. Mild aneurysmal dilatation of the infrarenal abdominal aorta measuring 3.6 cm. PROCEDURE INTERPRETED AT [facility] DEPARTMENT OF RADIOLOGY Final Report Signed by: Dr. Maverick Lira
[2017-05-28] MEDS ORDERED: LEVOFLOXACIN 500 MG TABLET PO SCH (11:30)
[2017-05-28 12:30] VITALS: BP 158/79
[2017-05-28] MEDS: LOSARTAN 50 MG TABLET PO SCH (13:01)
[2017-05-28] MEDS: GABAPENTIN 300 MG CAPSULE PO SCH (13:02)
[2017-05-28] MEDS: methIMAzole 5 MG TABLET PO SCH (13:02)
[2017-05-28] MEDS: ENOXAPARIN 40 MG/0.4 ML SYRINGE SUBCUT SCH (13:02)
[2017-05-28] MEDS: INSULIN GLARGINE 100 UNIT/ML SUBCUT SCH (13:02)
[2017-05-28] MEDS: PANTOPRAZOLE 40 MG TABLET PO SCH (13:02)
[2017-05-28] MEDS: METHADONE 10 MG TABLET PO SCH (13:02)
--- NOTE | 2017-05-28 13:05 | General Surgery Consult Note ---
Assessment and Plan - Time spent with patient Time spent with patient: Greater than 30 minutes (1) Abdominal pain Status: Acute Assessment and plan: Mr. casillas is a pleasant 67-year-old -[place] male admitted by the hospitalist service on 05/23/2017 with right lower lobe pneumonia and abdominal pain. Dr. Swann was consulted for evaluation of questionable gallbladder disease. CT scan, right upper quadrant ultrasound, and MRI, along with physical exam showed no signs of gallbladder disease. Patient's pain is resolved and he has no nausea or vomiting or pain with a regular diet. There is no need for surgical intervention at this time and feel free to call Dr. Swann with any questions or he can have patient follow-up in clinic if there are further problems. Dr. Swann has seen and examined patient. Current Visit: Yes Qualifiers: Abdominal location: lower abdomen, unspecified Qualified Code(s): R10.30 - Lower abdominal pain, unspecified (2) Right lower lobe pneumonia Status: Acute Current Visit: Yes Qualifiers: Pneumonia type: due to unspecified organism Qualified Code(s): J18.1 - Lobar pneumonia, unspecified organism (3) AAA (abdominal aortic aneurysm) Status: Chronic Current Visit: Yes (4) Hypertension Status: Chronic Current Visit: Yes (5) Elevated erythrocyte sedimentation rate Status: Acute Current Visit: Yes History of Present Illness Chief complaint: Abdominal pain History of present illness: Mr. Casillas is a 67 year old male 67-year-old -[place] male with history of diabetes, AAA, peptic ulcers, diabetic neuropathy, hypertension, and chronic back pain admitted by the hospitalist service on 05/23/2017 with complaints of abdominal pain, fever, and shortness of breath. He was found to have a right lower lobe pneumonia and he is being treated with antibiotics and breathing treatments. CT scan of the abdomen showed a 3.[address] Borja has been following. This is asymptomatic and small and he will follow-up with Dr. Borja in November [address] Swann was consulted to evaluate the patient's abdominal pain and questionable gallbladder disease. CT scan done showed an ill -defined area of low density adjacent to the gallbladder fossa that did not appear to be cystic. Liver ultrasound shows no acute abnormality within the liver/gallbladder fossa. There was no wall thickening or intraluminal echoes or pericholecystic fluid. The Haque sign was negative. Gallbladder duct measured normal at 0.6 cm. Patient had an elevated ESR so Dr. Oliveira ordered an MRI of the abdomen. This showed a slightly distended gallbladder with prominence of the proximal cystic duct with suggestion of a small tiny calculus question at the origin of the cystic duct. There is minimal fatty infiltration of the pancreas without focal enlargement or ductal dilation. Patient is afebrile and vital signs stable and his abdomen is benign upon exam. Patient states he has had no further pain in the last couple of days. He described the pain as above the umbilicus and not associated with nausea and vomiting. Upon exam patient has no tenderness, normal bowel sounds, no signs of hernia defects. Home Medications Medication Instructions Recorded Confirmed Type Insulin Glargine [Lantus] 40 unit SUBCUT BEDTIME 08/03/15 05/24/17 History Methadone 5 mg PO BID 08/03/15 05/24/17 History Omeprazole [Prilosec] 40 mg PO DAILY 08/03/15 05/24/17 History Dicyclomine HCl 10 mg PO TID PRN 05/23/17 05/24/17 History Gabapentin 300 mg PO TID 05/23/17 05/24/17 History Ibuprofen Tab [Motrin Tab] 800 mg PO Q8H PRN 05/23/17 05/24/17 History Losartan/Hydrochlorothiazide 1 each PO DAILY 05/23/17 05/24/17 History [Losartan-Hctz 100-25 mg Tab] Metformin HCl 1,000 mg PO BID 05/23/17 05/24/17 History Pravastatin Sodium 20 mg PO QPM 05/23/17 05/24/17 History hydrALAZINE TAB [Apresoline Tab] 50 mg PO TID PRN 05/23/17 05/24/17 History methIMAzole [Methimazole] 2.5 mg PO DAILY 05/23/17 05/24/17 History Allergies Allergy/AdvReac Type Severity Reaction Status Date / Time lisinopril Allergy Swelling Verified 08/04/15 06:44 of Lip/Tongue/Throat Medical,Surgical,& Family Hx - Medical History Cardio: History of: Hypertension Psychological: No history of: Violent Behavior Neurology: No history of: Seizures Endocrine: History of: Diabetes Mellitus (IDDM) Gastrointestinal: History of: GERD, GI Problems (h/o gastric ulcer) Musculoskeletal: History of: Back/Neck Problems Hematology: No history of: Blood Transfusion Reaction Other: No history of: Anesthesia Reactions, Cancer - Surgical History Cardiac Surgeries: Patient Denies: Cardiac Catheterization Thoracic Surgeries: Patient denies;: Organ Transplant Neurologic Surgeries: Patient denies: Neurologic Surgery HEENT Surgeries: Surgical HX of: Thyroid Surgery Patient denies: Tonsilectomy & Adenoidectomy Reproductive Surgeries: Patient denies;: Genitourinary Surgery Orthopedic Surgeries: Surgical HX of;: Orthopedic Surgery (disk surgery on back and neck) - Family History Family History: Reports;: Family Diabetes (mother), Family Hypertension (mother) Denies;: Family Cancer - Social History Smoking Status: Never smoker Frequency of Alcohol Use: None Type of Drug Use: None Marital Status: Lives With:: Spouse Functional capacity: independent ambulation Exam - Constitutional Vitals: Period Temp Pulse Resp BP Sys/Mccormack Pulse Ox Last 24 Hr 96.9 F-99.2 F 58-90 14-20 141-158/66-79 92-98 Exam: 67-year-old -[place] male, no acute distress, alert and oriented Chest clear CV regular rate and rhythm Abdomen soft nontender, good bowel sounds, no signs of erythema, rebound, peritonitis or hernia defects. Extremities no edema Results - Labs CBC & BMP: 05/28/17 04:25 05/27/17 04:43 Lab Results: I have reviewed the past 24 hour labs - Diagnostic Findings Procedure: Abdominal Flat/Erect: report reviewed by me (No acute abnormality), CT Abdomen and Pelvis: report reviewed by me (Distal AAA measuring 3.6 cm. Enlarged prostate. Ill-defined area of low density adjacent to gallbladder fossa this does not appear to be cystic. Could represent an infiltrating mass, vascular mass, or area of focal fatty infiltration.), MRI: report reviewed by me (Slightly distended gallbladder with prominence of the proximal cystic duct with suggestion of small tiny calculus. Minimal fatty infiltration of the pancreas with focal enlargement of the pancreas without focal enlargement of the pancreas or intra-or extrahepatic ductal dilation. Mild aneurysmal dilation of the infrarenal abdominal aorta measuring 3.6 cm.), Ultrasound: report reviewed by me (Liver ultrasound shows no acute sonographic abnormality. No focal lesions identified within the region of the liver,/gallbladder fossa. )
--- NOTE | 2017-05-28 14:09 | Discharge Summary ---
Hospital Course - Hospital Course Hospital Course: is a 67-year-old with multiple medical problems including diabetes mellitus , AAA, peptic ulcer disease diabetic neuropathy, chronic back problem and hypertension. He was admitted on 05/23/2017 with lower abdominal pain and fever. He had temperature 101.6 in the ER. His wbc count on admission was 9.7 urinalysis was negative for any suspected infection. He underwent evaluation with abdominal x-ray which was without any acute abnormalities. His chest x-ray was consistent with a right perihilar infiltrate but he did not have any respiratory symptoms. He was further evaluated with abdominal CT scan which is reported to have distal abdominal aortic aneurysm measuring 3.6 cm. Enlarged prostate gland and an ill-defined area of low density adjacent to the gallbladder fossa which reported did not appear to be cystic. Patient was started on Zithromax and ceftriaxone for pneumonia. Patient symptomatically improved with antibiotic treatment his febrile fever resolved his white count remained within normal limits. IV antibiotic was switched to p.o. Levaquin which will be continued at time discharge for [address] scan finding of questionable low-density in the gallbladder fossa he had CT and liver ultrasound done which did not reveal any significant abnormalities. He has no abdominal pain and his exam was benign. He has a anemia which was worked up . Patient say he has chronic anemia and I did a workup for the anemia and noted that patient has possible bone marrow suppression as her bone marrow response is not adequate. Although he has a positive Hemoccult he has no overt bleeding and his hemoglobin hematocrit remained overal remained stable during the hospital stay. Noted patient is on methimazole for hyper thyroidism and this may have contributed. Patient has to followed up with his provider to follow-up on hemoglobin hematocrit and I will defer him to his provider about methimazole. He need to follow-up with the janitorial cleaner. During the workup also noted the patient had ESR of 121. Today it was 100. I was concerned about an explained the patient this high ESR could be because of infection or some inflammatory collagen disorder even malignancy. Patient has been asymptomatic except for his admitted with a pneumonia. Since there was questionable low density adjacent to gallbladder fossa, and a high ESR I did the liver ultrasound and then MRI to evaluate. None of them showed any abnormality except possible slightly distended gallbladder with prominence of the proximal cystic duct with suggestion of small tiny calculus questioned. Again patient has been totally asymptomatic at present. I did consult surgery also but no surgical intervention unless he has any symptom. Patient would be followed by primary provider if he has symptom for any such referrals. His CRP level was also elevated at 6.56. Since he has such a high level of ESR, he will need to follow have a follow-up with the his provider for possible repeat level to see if this was due to his current pneumonia which is being treated as he has no other obvious reason. I have asked him to have his primary care provider obtain the discharge summary to see the course of his stay in the hospital. Since he has a positive Hemoccult but no overt bleeding and overall stable hemoglobin during the stay in the hospital I did not see any need for urgent workup since patient say he had colonoscopy and EGD is scheduled in the next week . He is asked to return if he obviously see overt bleeding. Patient will be continued on his PPI orally. He was also seen by Dr. Borja for abdominal aortic aneurysm and he plan to do a follow-up in his office. His blood sugar was not ideally controlled but this can be managed as outpatient as he required to be n.p.o couple times in the hospital I was reluctant to adjust dose of insulin up during his stay in the hospital. Patient has received maximum benefit from his hospitalization and will discharge home. Diagnosis - Discharge Diagnosis (1) Right lower lobe pneumonia Status: Acute (2) Abnormal finding on imaging Status: Acute (3) Anemia Status: Chronic (4) AAA (abdominal aortic aneurysm) Status: Chronic (5) Hypertension Status: Chronic (6) Insulin dependent diabetes mellitus Status: Chronic (7) Elevated erythrocyte sedimentation rate Status: Acute (8) Anemia Status: Acute Discharge Plan - Discharge Data Disposition: Disch To Home/Self Care Condition at Discharge: Stable Discharge Diet: diabetic diet Activity: resume usual activities as tolerated - Discharge Medications New Levofloxacin Tab [Levaquin Tab] 500 mg PO Q24H #5 tablet Continue Omeprazole [Prilosec] 40 mg PO DAILY Methadone 5 mg PO BID Insulin Glargine [Lantus] 40 unit SUBCUT BEDTIME hydrALAZINE TAB [Apresoline Tab] 50 mg PO TID PRN PRN Reason: blood pressue Losartan/Hydrochlorothiazide [Losartan-Hctz 100-25 mg Tab] 1 each PO DAILY Pravastatin Sodium 20 mg PO QPM Dicyclomine HCl 10 mg PO TID PRN PRN Reason: Abdominal Pain Gabapentin 300 mg PO TID Metformin HCl 1,000 mg PO BID methIMAzole [Methimazole] 2.5 mg PO DAILY Discontinued Ibuprofen Tab [Motrin Tab] 800 mg PO Q8H PRN PRN Reason: Pain - Follow Up or Referral - Forms/Instructions Exam - Constitutional Vitals: Period Temp Pulse Resp BP Sys/Mccormack Pulse Ox Last 24 Hr 96.9 F-99.2 F 58-86 14-20 141-158/66-79 92-99 General appearance: no acute distress - Respiratory Respiratory exam: Present: clear to auscultation bilaterally. Absent: rales, rhonchi - Cardiovascular Cardiovascular exam: Present: regular rate and rhythm. Absent: JVD, tachycardia - GI/Abdominal GI/Abdominal exam: Present: normal bowel sounds, soft. Absent: distended, mass , tenderness - Extremities Exam Extremities exam: Present: normal inspection. Absent: edema - Neurological Exam Neurological exam: Present: alert, oriented X3 Discharge Results Procedures and tests throughout hospitalization: Pending Orders 05/23/17 20:18 Blood Culture Stat 05/28/17 07:00 Occult Blood, Stool Routine Labs on day of discharge: Labs from last 24 hours 05/28/17 05/28/17 05/28/17 12:02 07:15 06:01 Hgb Hct ESR [place] POC Glucose 197 H 149 H C-Reactive Protein 6.56 H 05/28/17 05/28/17 05/27/17 06:01 04:25 19:11 Hgb 9.8 L Hct 31.3 L ESR [place] 100 H POC Glucose 226 H C-Reactive Protein 05/27/17 16:10 Hgb Hct ESR [place] POC Glucose 161 H C-Reactive Protein Preliminary micro results at discharge 05/23/17 20:18 Blood Culture - Preliminary Blood No growth at 3 days 05/23/17 20:10 Blood Culture - Preliminary Blood No growth at 3 days DS: Provider Date of admission: 05/23/17 23:10 Primary care physician: . No PCP Attending physician on admission: Romulo Renee MD Consults: 05/25/17 11:46 Consult to Physician [CONS] Routine Comment: AAA 3.6 cm Consulting Provider: Marlon Borja When should Consulting Provider be notified: In am Person Notified: JELANI Date Notified: 05/26/17 Time Notified: 09:24 05/27/17 17:35 Consult to Physician [CONS] Routine Comment: Consulting Provider: Romulo Rodriguez Consulting Provider Notified: No When should Consulting Provider be notified: In am Consult to Specialist Group: Hematology When should Consulting Provider be notified: In am Person Notified: Marilee Date Notified: 05/28/17 Time Notified: 09:09 05/28/17 12:00 Consult to Physician [CONS] Routine Comment: Distended Gall bladder ? cystic duct stone Consulting Provider: Cuong Swann Consult to Specialist Group: Surgery When should Consulting Provider be notified: Now Person Notified: Luz Maria Date Notified: 05/28/17 Time Notified: 12:10 Discharging clinician: Michelet Oliveira MD
== END 2017-05-28 15:09 | disposition home or self-care (01) | DRG 195 ==
LOC: N.ED 18:40 → SUATTDRO 23:10 → N.EDINP 23:10 → N.5E 23:42
PROVIDERS: ADMIT Internal Medicine; ATTEND Internal Medicine

== ENCOUNTER 2017-10-14 10:49 | Inpatient (IN) ==
[~2017-10-14 10:49] MED LIST: DIAZEPAM 5 MG TABLET PO ONE; MAGNESIUM SULF RIDER 2 GM in PREMIX 1 EACH IV PRN; POTASSIUM CHLORIDE RIDER 10 MEQ in PREMIX 1 EACH IV PRN; diphenhydrAMINE CAP 25 MG CAPSULE PO ONE
[2017-10-14] MEDS ORDERED: SODIUM CHLORIDE 0.9% 1,000 ML IV SCH (11:00)
[2017-10-14 11:45] LABS: Basophils % 0.7 % (0.0-0.8); Eosinophils # 0.1 10*3/uL (0.0-0.87); Eosinophils % 1.3 % (0.00-10.9); Hematocrit 34.1 VOL% (42.0-52.0); Hemoglobin 11.3 GM/DL (14.0-18.0); Immature Granulocytes % 0.4 %; Immature Granulocytes Absolute 0.02 #; Lymphocytes # 1.7 10*3/uL (1.4-4.0); Lymphocytes % 31.4 % (21.2-54.2); Mean Corpuscular HGB Conc 33.1 GM/DL (32-36); Mean Corpuscular Hemoglobin 25 PG (27-34); Mean Corpuscular Volume 76.5 FL (87-102); Monocytes # 0.4 10*3/uL (0.11-0.8); Monocytes % 7.8 % (1.7-12.7); Neutrophils # 3.2 10*3/uL (1.4-7.4); Neutrophils % 58.4 % (38.7-73.9); Platelet Count 229 T/CUMM (130-400); Red Blood Count 4.46 MC/CUMM (3.8-5.5); Red Cell Distribution Width 14.6 % (9.3-17.3); White Blood Count 5.4 T/CUMM (4-12)
[2017-10-14] MEDS ORDERED: DIAZEPAM 5 MG TABLET ONE (11:48)
[2017-10-14] MEDS ORDERED: diphenhydrAMINE CAP 25 MG CAPSULE ONE (11:48)
[2017-10-14 12:10] LABS: Calcium 9.1 MG/DL (8.5-10.1); Osmolality,Calculated 283.5 MOS/KG (273-304); Potassium 3.9 MMOL/L (3.5-5.1)
[2017-10-14] MEDS ORDERED: MEPERIDINE 25 MG/1 ML VIAL ONE (13:18)
[2017-10-14] MEDS ORDERED: MIDAZOLAM 2 MG/2 ML VIAL ONE (13:18)
[2017-10-14] MEDS ORDERED: LIDOCAINE 1% 20 ML VIAL ONE (13:18)
[2017-10-14] MEDS ORDERED: HEPARIN 5,000 UNIT/1 ML VIAL ONE (13:36)
[2017-10-14] MEDS ORDERED: ONDANSETRON 4 MG/2 ML VIAL IV PRN (14:39)
[2017-10-14] MEDS ORDERED: ZALEPLON 5 MG CAPSULE PO PRN (14:39)
[2017-10-14] MEDS ORDERED: ACETAMINOPHEN 325 MG TABLET PO PRN (14:39)
[2017-10-14] MEDS ORDERED: MAGNESIUM SULF RIDER 2 GM in PREMIX 1 EACH IV PRN (14:39)
[2017-10-14] MEDS ORDERED: MAGNESIUM SULF RIDER 4 GM in PREMIX 1 EACH IV PRN (14:39)
[2017-10-14] MEDS ORDERED: NITROGLYCERIN SL 0.4 MG TABLET SL PRN (14:55)
[2017-10-14] MEDS ORDERED: DICYCLOMINE 10 MG CAPSULE PO PRN (14:55)
[2017-10-14] MEDS ORDERED: PANTOPRAZOLE 40 MG TABLET PO SCH (15:00)
[2017-10-14 16:54] LABS: Apearance,Urine CLEAR (Clear); Bilirubin,Urine Negative (Negative); Blood, Urine Negative (Negative); Glucose,Urine (UA) Negative (Negative); Ketones,Urine Negative (Negative); Nitrite,Urine Negative (Negative); Protein,Urine Negative; RBC,Urine 1 /HPF (0-4); Squamous Epithelial Cell,Urine Occasional /HPF (0-10); Urine Color Straw (Yellow); Urine Urobilinogen < 2.0 EU/DL (0.2-1.0); WBC,Urine <1 /HPF (0-6)
[2017-10-14] MEDS ORDERED: INFLUENZA VIRUS VACCINE 0.5 ML SYRINGE IM ONE (17:05)
[2017-10-14] MEDS ORDERED: PNEUMOCOCCAL VACCINE (13 VALENT) 0.5 ML SYRINGE IM ONE (17:15)
[2017-10-14] MEDS ORDERED: LORazepam 0.5 MG TABLET PO PRN (17:29)
[2017-10-14] MEDS ORDERED: diphenhydrAMINE CAP 25 MG CAPSULE PO PRN (17:29)
[2017-10-14] MEDS ORDERED: BISACODYL 5 MG TABLET PO PRN (17:30)
[2017-10-14] MEDS: GABAPENTIN 300 MG CAPSULE PO SCH ×2 (17:56→21:43)
[2017-10-14] MEDS: PANTOPRAZOLE 40 MG TABLET PO SCH (18:25)
[2017-10-14] MEDS ORDERED: ENOXAPARIN 30 MG/0.3 ML SYRINGE SUBCUT ONE (21:00)
[2017-10-14] MEDS: METHADONE 10 MG TABLET PO SCH (21:42)
[2017-10-14] MEDS: MAGNESIUM CHLORIDE 64 MG TABLET PO SCH (21:43)
[2017-10-14] MEDS: PRAVASTATIN 20 MG TABLET PO SCH (21:43)
[2017-10-14] MEDS: CARVEDILOL 12.5 MG TABLET PO SCH (21:43)
[2017-10-15 04:24] LABS: Basophils % 0.3 % (0.0-0.8); Eosinophils # 0.1 10*3/uL (0.0-0.87); Eosinophils % 1.3 % (0.00-10.9); Hematocrit 31.4 VOL% (42.0-52.0); Hemoglobin 10.4 GM/DL (14.0-18.0); Immature Granulocytes % 0.3 %; Immature Granulocytes Absolute 0.02 #; Lymphocytes # 1.7 10*3/uL (1.4-4.0); Lymphocytes % 24.4 % (21.2-54.2); Mean Corpuscular HGB Conc 33.1 GM/DL (32-36); Mean Corpuscular Hemoglobin 26 PG (27-34); Mean Platelet Volume 10.1 FL (9.6-12.0); Monocytes # 0.6 10*3/uL (0.11-0.8); Neutrophils # 4.6 10*3/uL (1.4-7.4); Neutrophils % 65.7 % (38.7-73.9); Platelet Count 209 T/CUMM (130-400); Red Blood Count 4.08 MC/CUMM (3.8-5.5); Red Cell Distribution Width 14.7 % (9.3-17.3)
[2017-10-15 04:40] LABS: Risk Ratio 4.51; VLDL CHOLESTEROL 20.2 MG/DL
[2017-10-15 04:47] LABS: Albumin 3.2 G/DL (3.4-5.0); Bilirubin,Total 1.3 MG/DL (0.2-1.0); Calcium 8.7 MG/DL (8.5-10.1); Magnesium 1.9 MG/DL (1.8-2.4); Osmolality,Calculated 281.8 MOS/KG (273-304); Potassium 4.3 MMOL/L (3.5-5.1); Total Protein 6.2 G/DL (6.4-8.3)
[2017-10-15] MEDS: LOSARTAN/HCTZ 50-12.5 MG TABLET PO SCH (09:34)
[2017-10-15] MEDS: METHADONE 10 MG TABLET PO SCH ×2 (09:34→21:47)
[2017-10-15] MEDS: methIMAzole 5 MG TABLET PO SCH (09:35)
[2017-10-15] MEDS: amLODIPine 10 MG TABLET PO SCH (09:36)
[2017-10-15] MEDS: ASPIRIN EC 325 MG TABLET PO SCH (09:36)
[2017-10-15] MEDS: GABAPENTIN 300 MG CAPSULE PO SCH ×3 (09:36→21:43)
[2017-10-15] MEDS: CARVEDILOL 12.5 MG TABLET PO SCH ×2 (09:36→21:43)
[2017-10-15] MEDS: PANTOPRAZOLE 40 MG TABLET PO SCH (09:36)
[2017-10-15] MEDS: MAGNESIUM CHLORIDE 64 MG TABLET PO SCH ×2 (09:36→21:43)
[2017-10-15] MEDS: ENOXAPARIN 40 MG/0.4 ML SYRINGE SUBCUT SCH ×2 (09:37→21:48)
[2017-10-15] MEDS: INSULIN GLARGINE 100 UNIT/ML SUBCUT SCH (09:37)
[2017-10-15] MEDS ORDERED: DEXTROSE 50% 25 GM/50 ML VIAL IV PRN (11:18)
[2017-10-15] MEDS ORDERED: GLUCAGON 1 MG VIAL IM PRN (11:18)
[2017-10-15] MEDS: INSULIN LISPRO 100 UNIT/ML SUBCUT SCH ×3 (11:36→21:48)
[2017-10-15] MEDS: PRAVASTATIN 20 MG TABLET PO SCH (21:49)
[2017-10-15] MEDS: CHLORHEXIDINE 0.12% ORAL RINSE 60 ML BOTTLE SWISH/SPIT SCH (22:46)
[2017-10-16] MEDS: INSULIN LISPRO 100 UNIT/ML SUBCUT SCH ×4 (09:08→21:41)
[2017-10-16] MEDS: INSULIN GLARGINE 100 UNIT/ML SUBCUT SCH (09:08)
[2017-10-16] MEDS: methIMAzole 5 MG TABLET PO SCH (09:09)
[2017-10-16] MEDS: ENOXAPARIN 40 MG/0.4 ML SYRINGE SUBCUT SCH (09:09)
[2017-10-16] MEDS: ASPIRIN EC 325 MG TABLET PO SCH (09:10)
[2017-10-16] MEDS: LOSARTAN/HCTZ 50-12.5 MG TABLET PO SCH (09:10)
[2017-10-16] MEDS: CARVEDILOL 12.5 MG TABLET PO SCH ×2 (09:11→21:41)
[2017-10-16] MEDS: amLODIPine 10 MG TABLET PO SCH (09:11)
[2017-10-16] MEDS: MAGNESIUM CHLORIDE 64 MG TABLET PO SCH ×2 (09:11→21:41)
[2017-10-16] MEDS: GABAPENTIN 300 MG CAPSULE PO SCH ×3 (09:11→21:42)
[2017-10-16] MEDS: PANTOPRAZOLE 40 MG TABLET PO SCH (09:12)
[2017-10-16] MEDS: METHADONE 10 MG TABLET PO SCH ×2 (09:12→21:42)
[2017-10-16] MEDS: CHLORHEXIDINE 0.12% ORAL RINSE 60 ML BOTTLE SWISH/SPIT SCH (09:15)
[2017-10-16] MEDS: CHLORHEXIDINE 4% SOLN 118 ML BOTTLE TOP SCH ×2 (14:30→21:42)
[2017-10-16] MEDS: SODIUM CHLORIDE 0.9% 1,000 ML IV SCH (16:38)
[2017-10-16] MEDS: PRAVASTATIN 20 MG TABLET PO SCH (21:41)
[2017-10-17] MEDS ORDERED: CEFUROXIME INJ 1,500 MG in SYRINGE 1 EACH IV ONE (05:00)
[2017-10-17] MEDS ORDERED: TISSUE ADHESIVE 1 EACH APPLICATOR TOP ONE (05:25)
[2017-10-17] MEDS ORDERED: VANCOMYCIN 1,000 MG VIAL ONE (05:25)
[2017-10-17] MEDS ORDERED: PAPAVERINE 60 MG/2 ML VIAL ONE (05:25)
[2017-10-17 05:38] LABS: Basophils % 0.5 % (0.0-0.8); Eosinophils # 0.1 10*3/uL (0.0-0.87); Eosinophils % 1.8 % (0.00-10.9); Hematocrit 29.2 VOL% (42.0-52.0); Hemoglobin 9.6 GM/DL (14.0-18.0); Immature Granulocytes % 0.2 %; Immature Granulocytes Absolute 0.01 #; Lymphocytes # 1.6 10*3/uL (1.4-4.0); Mean Corpuscular HGB Conc 32.9 GM/DL (32-36); Mean Corpuscular Hemoglobin 25 PG (27-34); Mean Corpuscular Volume 76.8 FL (87-102); Mean Platelet Volume 10.8 FL (9.6-12.0); Monocytes # 0.7 10*3/uL (0.11-0.8); Neutrophils # 3.7 10*3/uL (1.4-7.4); Neutrophils % 60.5 % (38.7-73.9); Platelet Count 188 T/CUMM (130-400); Red Cell Distribution Width 14.6 % (9.3-17.3); White Blood Count 6.1 T/CUMM (4-12)
[2017-10-17] MEDS: CARVEDILOL 12.5 MG TABLET PO SCH ×2 (05:58→19:59)
[2017-10-17] MEDS: PANTOPRAZOLE 40 MG TABLET PO SCH ×2 (05:58→20:00)
[2017-10-17] MEDS: amLODIPine 10 MG TABLET PO SCH ×2 (05:58→20:00)
[2017-10-17] MEDS: CHLORHEXIDINE 0.12% ORAL RINSE 60 ML BOTTLE SWISH/SPIT SCH ×3 (05:59→20:01)
[2017-10-17] MEDS ORDERED: ALBUMIN 5% 12.5 GM/250 ML VIAL IV ONE ×2 (06:08→12:20)
[2017-10-17] MEDS ORDERED: CALCIUM CHLORIDE 1,000 MG/10 ML VIAL IV ONE (06:08)
[2017-10-17] MEDS ORDERED: TRANEXAMIC ACID 1,000 MG/10 ML VIAL IV ONE ×2 (06:09→12:09)
[2017-10-17] MEDS ORDERED: DEXMEDETOMIDINE 200 MCG/2 ML VIAL IV ONE (06:09)
[2017-10-17] MEDS ORDERED: EPINEPHrine 1 MG/ML VIAL ONE (06:10)
[2017-10-17 06:15] LABS: Calcium 8.8 MG/DL (8.5-10.1); Magnesium 1.9 MG/DL (1.8-2.4); Osmolality,Calculated 281.7 MOS/KG (273-304); Potassium 4.2 MMOL/L (3.5-5.1)
[2017-10-17] MEDS: SODIUM CHLORIDE 0.9% 1,000 ML IV SCH (06:53)
[2017-10-17 07:38] LABS: ABG Base Excess -0.5 MMOL/L (-2.5-2.5); ABG PCO2 39.1 MM HG (35-48); ABG PH 7.398 (7.35-7.45); Glucose Heart Surgery 213 MG/DL (74-106); Hematocrit Heart Surgery 30.5 PERCENT (42-52); Hemoglobin Heart Surgery 9.8 G/DL (14.0-18.0); Ionized Calcium Arterial 1.21 MMOL/L (1.21-1.46); PCO2 Patient Temp Arterial 39.1 MMHG; PH Patient Temp Arterial 7.398; Patient Temperature 37 CELCIUS; Potassium Heart/CVR 4.1 MMOL/L (3.5-5.1); Sodium Heart/CVR 138 MMOL/L (135-145)
[2017-10-17] MEDS ORDERED: HEPARIN 10,000 UNIT/10 ML VIAL ONE (08:12)
[2017-10-17] MEDS ORDERED: methylPREDNISolone SOD SUC 1,000 MG/8 ML VIAL ONE (08:12)
[2017-10-17] MEDS ORDERED: MAGNESIUM SULFATE 1 GM/2 ML VIAL ONE (08:12)
[2017-10-17] MEDS ORDERED: DEXTROSE 5% KCL 20 MEQ 20 MEQ/1,000 ML BAG IV ONE (08:12)
[2017-10-17] MEDS ORDERED: ALBUMIN 25% 25 GM/100 ML VIAL IV ONE (08:12)
[2017-10-17] MEDS ORDERED: SODIUM BICARBONATE 50 MEQ/50 ML SYRINGE IV ONE (08:12)
[2017-10-17] MEDS ORDERED: FUROSEMIDE 20 MG/2 ML VIAL ONE (08:12)
[2017-10-17] MEDS ORDERED: PROTAMINE SULFATE 250 MG/25 ML VIAL IV ONE (08:12)
[2017-10-17] MEDS ORDERED: MANNITOL 12.5 GM/50 ML VIAL IV ONE (08:12)
[2017-10-17 08:23] LABS: Apearance,Urine CLEAR (Clear); Bilirubin,Urine Negative (Negative); Blood, Urine Moderate mg/dL (Negative); Glucose,Urine (UA) 50 mg/dL (Negative); Ketones,Urine Negative (Negative); Mucus,Urine Occasional /LPF (Occasional); Nitrite,Urine Negative (Negative); Protein,Urine Negative; RBC,Urine 1 /HPF (0-4); Urine Color Yellow (Yellow); Urine Specific Gravity 1.009 (1.001-1.035); Urine Urobilinogen < 2.0 EU/DL (0.2-1.0); WBC,Urine 1 /HPF (0-6)
[2017-10-17 09:18] LABS: Hematocrit Heart Surgery 21.9 PERCENT (42-52); PCO2 Patient Temp Venous 38.2 MM HG; PH Patient Temp Venous 7.419; PO2 Patient Temp Venous 32.5 MM HG; Potassium Heart/CVR 4.9 MMOL/L (3.5-5.1); VBG Base Excess 0.6 MEQ/L (0-4); VBG HCO3 24.7 MEQ/L (24-28); VBG Oxygen Saturation 72.6 %; VBG PCO2 44.2 MMHG (41-51); VBG PH 7.375
[2017-10-17] MEDS ORDERED: INSULIN REGULAR 100 UNIT/ML ONE ×2 (09:31→11:17)
[2017-10-17 10:16] LABS: Hematocrit Heart Surgery 23.1 PERCENT (42-52); Hemoglobin Heart Surgery 7.4 G/DL (14.0-18.0); PCO2 Patient Temp Venous 40.6 MM HG; PH Patient Temp Venous 7.394; PO2 Patient Temp Venous 36.5 MM HG; Potassium Heart/CVR 4.2 MMOL/L (3.5-5.1); VBG HCO3 24.1 MEQ/L (24-28); VBG Oxygen Saturation 67.3 %; VBG PCO2 40.6 MMHG (41-51); VBG PH 7.394; VBG PO2 36.5 MMHG (17-40)
[2017-10-17] MEDS ORDERED: THROMBIN TOPICAL (RECOMBINANT) 5,000 UNIT VIAL TOP ONE (10:44)
[2017-10-17 10:49] LABS: ABG Base Excess -1.8 MMOL/L (-2.5-2.5); ABG HCO3 22.9 MMOL/L (20-26); ABG PCO2 37.5 MM HG (35-48); ABG PH 7.392 (7.35-7.45); ABG TCO2 21.4 MMOL/L (23-27); Glucose Heart Surgery 257 MG/DL (74-106); Hematocrit Heart Surgery 23.4 PERCENT (42-52); Hemoglobin Heart Surgery 7.5 G/DL (14.0-18.0); Ionized Calcium Arterial 1.35 MMOL/L (1.21-1.46); PCO2 Patient Temp Arterial 37.5 MMHG; PH Patient Temp Arterial 7.392; Patient Temperature 37 CELCIUS; Potassium Heart/CVR 3.7 MMOL/L (3.5-5.1); Sodium Heart/CVR 135 MMOL/L (135-145)
[2017-10-17] MEDS ORDERED: INSULIN REGULAR DRIP 100 ML IV ONE (11:34)
[2017-10-17] MEDS ORDERED: PHENYLEPHRINE DRIP 40 MG/250 ML PREMIX IV ONE (12:02)
[2017-10-17] MEDS ORDERED: MIDAZOLAM 10 MG/2 ML VIAL ONE (12:08)
[2017-10-17] MEDS ORDERED: VECURONIUM 10 MG VIAL IV ONE (12:09)
[2017-10-17] MEDS: PHENYLEPHRINE DRIP 40 MG/250 ML PREMIX IV SCH (12:10)
[2017-10-17] MEDS ORDERED: NITROGLYCERIN DRIP 50 MG/250 ML BOTTLE IV ONE ×2 (12:11→14:02)
[2017-10-17] MEDS ORDERED: SODIUM CHLORIDE 0.9% 200 ML IV ONE (12:11)
[2017-10-17] MEDS ORDERED: ETOMIDATE 40 MG/20 ML VIAL IV ONE (12:11)
[2017-10-17] MEDS ORDERED: LACTATED RINGERS 1,000 ML IV ONE (12:11)
[2017-10-17] MEDS ORDERED: SODIUM CHLORIDE 0.9% 2,000 ML IV ONE (12:11)
[2017-10-17] MEDS ORDERED: ePHEDrine 50 MG/ML AMP ONE (12:11)
[2017-10-17] MEDS ORDERED: SODIUM CHLORIDE 0.9% 500 ML IV ONE (12:12)
[2017-10-17] MEDS ORDERED: MAGNESIUM SULF RIDER 4 GM in PREMIX 1 EACH IV PRN (12:13)
[2017-10-17] MEDS ORDERED: ONDANSETRON 4 MG/2 ML VIAL IV PRN (12:13)
[2017-10-17] MEDS ORDERED: POTASSIUM CHLORIDE RIDER 10 MEQ in PREMIX 1 EACH IV PRN (12:13)
[2017-10-17] MEDS ORDERED: MAGNESIUM SULF RIDER 2 GM in PREMIX 1 EACH IV PRN (12:13)
[2017-10-17] MEDS ORDERED: CALCIUM CHLORIDE 1,000 MG/10 ML SYRINGE IV PRN (12:13)
[2017-10-17] MEDS ORDERED: DEXTROSE 50% 25 GM/50 ML VIAL IV PRN ×2 (12:13)
[2017-10-17] MEDS ORDERED: SODIUM CHLORIDE 0.9% 250 ML IV PRN (12:13)
[2017-10-17] MEDS ORDERED: CHLORHEXIDINE 4% SOLN 118 ML BOTTLE TOP PRN (12:13)
[2017-10-17] MEDS ORDERED: ACETAMINOPHEN 650 MG SUPP RECTAL PRN (12:13)
[2017-10-17] MEDS ORDERED: SEVOFLURANE 1 UNIT/15 MINUTE INH ONE (12:15)
[2017-10-17] MEDS ORDERED: PHENYLEPHRINE IV ONE (12:21)
[2017-10-17 12:22] LABS: ABG Base Excess -2.1 MMOL/L (-2.5-2.5); ABG HCO3 22.6 MMOL/L (20-26); ABG Oxygen Saturation 92.9 % (95-100); ABG PCO2 41.7 MM HG (35-48); ABG PH 7.355 (7.35-7.45); ABG PO2 67.9 MM HG (80-95); ABG TCO2 21.9 MMOL/L (23-27); Glucose Heart Surgery 178 MG/DL (74-106); Hematocrit Heart Surgery 24.6 PERCENT (42-52); Hemoglobin Heart Surgery 7.9 G/DL (14.0-18.0); Potassium Heart/CVR 3.8 MMOL/L (3.5-5.1)
[2017-10-17] MEDS: ALBUMIN 5% 12.5 GM in PREMIX 1 EACH IV PRN ×2 (12:25→12:52)
[2017-10-17] MEDS: CHLORHEXIDINE 4% SOLN 118 ML BOTTLE TOP SCH (12:27)
[2017-10-17] MEDS: SODIUM CHLORIDE 0.45% 1,000 ML IV SCH ×2 (12:27→12:28)
[2017-10-17 12:29] LABS: Basophils % 0.2 % (0.0-0.8); Eosinophils % 0.5 % (0.00-10.9); Hematocrit 23.2 VOL% (42.0-52.0); Hemoglobin 7.8 GM/DL (14.0-18.0); Immature Granulocytes % 0.8 %; Immature Granulocytes Absolute 0.07 #; Lymphocytes # 1.3 10*3/uL (1.4-4.0); Lymphocytes % 15.6 % (21.2-54.2); Mean Corpuscular HGB Conc 33.6 GM/DL (32-36); Mean Corpuscular Hemoglobin 27 PG (27-34); Mean Corpuscular Volume 79.7 FL (87-102); Monocytes # 0.6 10*3/uL (0.11-0.8); Neutrophils # 6.4 10*3/uL (1.4-7.4); Neutrophils % 75.9 % (38.7-73.9); Platelet Count 173 T/CUMM (130-400); Red Blood Count 2.91 MC/CUMM (3.8-5.5); Red Cell Distribution Width 14.5 % (9.3-17.3); White Blood Count 8.4 T/CUMM (4-12)
[2017-10-17] MEDS ORDERED: INSULIN REGULAR DRIP 100 ML IV SCH (12:30)
[2017-10-17] MEDS: POTASSIUM CHLORIDE RIDER 20 MEQ in PREMIX 1 EACH IV PRN ×4 (12:34→20:33)
[2017-10-17 12:48] LABS: Lactic Acid 2.1 MMOL/L (0.4-2.0)
[2017-10-17 12:54] LABS: Calcium 8.7 MG/DL (8.5-10.1); Magnesium 1.9 MG/DL (1.8-2.4); Osmolality,Calculated 282.5 MOS/KG (273-304)
[2017-10-17 12:57] LABS: VBG Base Excess -1.3 MEQ/L (0-4); VBG HCO3 24.1 MEQ/L (24-28); VBG Oxygen Saturation 61.2 %; VBG PCO2 43.3 MMHG (41-51); VBG PH 7.363; VBG PO2 30.8 MMHG (17-40)
[2017-10-17 13:04] LABS: INR 1.1; PT Patient Result 11.4 SECS; Partial Thromboplastin Time 29.8 SECS (0-40)
[2017-10-17] MEDS: MORPHINE 10 MG/1 ML VIAL IV PRN ×2 (14:03→18:25)
[2017-10-17] MEDS: NITROGLYCERIN DRIP 50 MG/250 ML BOTTLE IV SCH (14:20)
[2017-10-17] MEDS: INSULIN REGULAR 100 UNIT/ML IV PRN ×3 (14:29→18:51)
[2017-10-17 17:01] LABS: ABG Base Excess -0.9 MMOL/L (-2.5-2.5); ABG HCO3 23.7 MMOL/L (20-26); ABG Oxygen Saturation 94.8 % (95-100); ABG PCO2 35.5 MM HG (35-48); ABG PH 7.424 (7.35-7.45); ABG PO2 70.6 MM HG (80-95); ABG TCO2 21.4 MMOL/L (23-27)
[2017-10-17] MEDS: MORPHINE 2 MG/1 ML SYRINGE IV PRN (19:42)
[2017-10-17] MEDS: CEFUROXIME INJ 1,500 MG in SYRINGE 1 EACH IV SCH (19:54)
[2017-10-17] MEDS: METHADONE 10 MG TABLET PO SCH (19:58)
[2017-10-17] MEDS: ASPIRIN EC 325 MG TABLET PO SCH (19:59)
[2017-10-17] MEDS: INSULIN LISPRO 100 UNIT/ML SUBCUT SCH (19:59)
[2017-10-17] MEDS: GABAPENTIN 300 MG CAPSULE PO SCH (20:00)
[2017-10-17] MEDS: MAGNESIUM CHLORIDE 64 MG TABLET PO SCH (20:00)
[2017-10-17] MEDS: LOSARTAN/HCTZ 50-12.5 MG TABLET PO SCH (20:00)
[2017-10-17] MEDS: INSULIN GLARGINE 100 UNIT/ML SUBCUT SCH (20:00)
[2017-10-17] MEDS: methIMAzole 5 MG TABLET PO SCH (20:01)
[2017-10-17 20:13] LABS: ABG Base Excess -1.8 MMOL/L (-2.5-2.5); ABG HCO3 22.8 MMOL/L (20-26); ABG Oxygen Saturation 93.8 % (95-100); ABG PCO2 32.8 MM HG (35-48); ABG PH 7.432 (7.35-7.45); ABG PO2 66.7 MM HG (80-95); ABG TCO2 20.2 MMOL/L (23-27); Glucose Heart Surgery 145 MG/DL (74-106); Hematocrit Heart Surgery 27.4 PERCENT (42-52); Hemoglobin Heart Surgery 8.8 G/DL (14.0-18.0)
[2017-10-17] MEDS: MIDAZOLAM 2 MG/2 ML VIAL IV PRN ×2 (20:49→23:00)
[2017-10-18] MEDS: MIDAZOLAM 2 MG/2 ML VIAL IV PRN ×3 (02:07→07:37)
[2017-10-18] MEDS: SODIUM CHLORIDE 0.45% 1,000 ML IV SCH ×3 (02:14→16:24)
[2017-10-18 04:23] LABS: ABG Base Excess -2.8 MMOL/L (-2.5-2.5); ABG HCO3 22.1 MMOL/L (20-26); ABG PCO2 31.1 MM HG (35-48); ABG PH 7.433 (7.35-7.45); ABG PO2 93.3 MM HG (80-95); ABG TCO2 19.2 MMOL/L (23-27); Glucose Heart Surgery 144 MG/DL (74-106); Hematocrit Heart Surgery 27.2 PERCENT (42-52); Hemoglobin Heart Surgery 8.8 G/DL (14.0-18.0); Potassium Heart/CVR 4.4 MMOL/L (3.5-5.1)
[2017-10-18 04:32] LABS: Hematocrit 24.3 VOL% (42.0-52.0); Hemoglobin 8.4 GM/DL (14.0-18.0); Immature Granulocytes % 0.2 %; Immature Granulocytes Absolute 0.02 #; Lymphocytes # 0.9 10*3/uL (1.4-4.0); Lymphocytes % 8.6 % (21.2-54.2); Mean Corpuscular HGB Conc 34.6 GM/DL (32-36); Mean Corpuscular Hemoglobin 27 PG (27-34); Mean Corpuscular Volume 78.1 FL (87-102); Mean Platelet Volume 10.7 FL (9.6-12.0); Monocytes # 0.6 10*3/uL (0.11-0.8); Monocytes % 5.8 % (1.7-12.7); Neutrophils # 8.7 10*3/uL (1.4-7.4); Neutrophils % 85.4 % (38.7-73.9); Platelet Count 172 T/CUMM (130-400); Red Blood Count 3.11 MC/CUMM (3.8-5.5); Red Cell Distribution Width 14.5 % (9.3-17.3); White Blood Count 10.1 T/CUMM (4-12)
[2017-10-18 05:07] LABS: Calcium 8.2 MG/DL (8.5-10.1); Osmolality,Calculated 278.7 MOS/KG (273-304); Potassium 4.6 MMOL/L (3.5-5.1)
[2017-10-18] MEDS: MORPHINE 2 MG/1 ML SYRINGE IV PRN (05:15)
[2017-10-18] MEDS: POTASSIUM CHLORIDE RIDER 20 MEQ in PREMIX 1 EACH IV PRN (05:30)
[2017-10-18] MEDS ORDERED: FUROSEMIDE 40 MG/4 ML VIAL IV ONE (06:22)
[2017-10-18] MEDS: MORPHINE 10 MG/1 ML VIAL IV PRN ×4 (07:26→17:13)
[2017-10-18 07:33] LABS: ABG HCO3 23.6 MMOL/L (20-26); ABG Oxygen Saturation 97.9 % (95-100); ABG PH 7.462 (7.35-7.45); ABG PO2 90.9 MM HG (80-95); ABG TCO2 20.1 MMOL/L (23-27)
[2017-10-18] MEDS: METOPROLOL TARTRATE 25 MG TABLET PO SCH ×2 (08:59→21:14)
[2017-10-18] MEDS: CLOPIDOGREL 75 MG TABLET PO SCH (09:01)
[2017-10-18] MEDS: CEFUROXIME INJ 1,500 MG in SYRINGE 1 EACH IV SCH ×2 (09:20→21:16)
[2017-10-18] MEDS: CHLORHEXIDINE 0.12% ORAL RINSE 60 ML BOTTLE SWISH/SPIT SCH ×2 (09:21→21:24)
[2017-10-18] MEDS ORDERED: METOPROLOL TARTRATE 5 MG/5 ML VIAL IV ONE ×3 (09:28→14:51)
[2017-10-18] MEDS: METHADONE 10 MG TABLET PO SCH ×2 (10:12→21:13)
[2017-10-18] MEDS ORDERED: INSULIN REGULAR 100 UNIT/ML SUBCUT SCH (12:00)
[2017-10-18] MEDS ORDERED: ATORVASTATIN 40 MG TABLET PO SCH (12:06)
[2017-10-18] MEDS ORDERED: methIMAzole 5 MG TABLET PO SCH (12:30)
[2017-10-18] MEDS: ASPIRIN EC 325 MG TABLET PO SCH (13:34)
[2017-10-18] MEDS: FUROSEMIDE 40 MG TABLET PO SCH (13:35)
[2017-10-18] MEDS: methIMAzole 5 MG TABLET PO SCH (13:35)
[2017-10-18] MEDS: INSULIN REGULAR 100 UNIT/ML SUBCUT SCH ×3 (13:39→21:18)
[2017-10-18] MEDS: PHENYLEPHRINE DRIP 40 MG/250 ML PREMIX IV SCH (13:43)
[2017-10-18] MEDS ORDERED: SODIUM CHLORIDE 0.45% 1,000 ML IV SCH (16:03)
[2017-10-18] MEDS ORDERED: ALUMINUM/MAGNES/SIMETH MAX STR 30 ML UDCUP PO PRN (18:09)
[2017-10-18] MEDS ORDERED: ESMOLOL 100 MG/10 ML VIAL IV ONE (18:11)
[2017-10-18] MEDS ORDERED: NITROPRUSSIDE 100 MG in DEXTROSE 5% 250 ML IV SCH (18:30)
[2017-10-18] MEDS: NITROGLYCERIN DRIP 50 MG/250 ML BOTTLE IV SCH (18:34)
[2017-10-18] MEDS: PANTOPRAZOLE 40 MG TABLET PO SCH (21:14)
[2017-10-18] MEDS: ATORVASTATIN 40 MG TABLET PO SCH (21:14)
[2017-10-18] MEDS: ACETAMINOPHEN 325 MG TABLET PO PRN (21:15)
[2017-10-19] MEDS: INSULIN REGULAR 100 UNIT/ML SUBCUT SCH ×7 (01:13→21:39)
[2017-10-19 04:09] LABS: ABG Base Excess 2.5 MMOL/L (-2.5-2.5); ABG HCO3 26.6 MMOL/L (20-26); ABG Oxygen Saturation 95.8 % (95-100); ABG PCO2 39.3 MM HG (35-48); ABG PO2 78.1 MM HG (80-95); ABG TCO2 24.5 MMOL/L (23-27)
[2017-10-19 04:28] LABS: Basophils % 0.1 % (0.0-0.8); Hematocrit 27.3 VOL% (42.0-52.0); Hemoglobin 9.1 GM/DL (14.0-18.0); Immature Granulocytes % 0.5 %; Immature Granulocytes Absolute 0.06 #; Lymphocytes # 1.2 10*3/uL (1.4-4.0); Lymphocytes % 10.2 % (21.2-54.2); Mean Corpuscular HGB Conc 33.3 GM/DL (32-36); Mean Corpuscular Hemoglobin 26 PG (27-34); Mean Corpuscular Volume 78.2 FL (87-102); Mean Platelet Volume 10.3 FL (9.6-12.0); Monocytes # 1.2 10*3/uL (0.11-0.8); Monocytes % 9.6 % (1.7-12.7); Neutrophils # 9.5 10*3/uL (1.4-7.4); Neutrophils % 79.6 % (38.7-73.9); Platelet Count 201 T/CUMM (130-400); Red Blood Count 3.49 MC/CUMM (3.8-5.5); Red Cell Distribution Width 15.2 % (9.3-17.3)
[2017-10-19 04:54] LABS: Calcium 8.2 MG/DL (8.5-10.1); Magnesium 2.2 MG/DL (1.8-2.4); Osmolality,Calculated 282.5 MOS/KG (273-304); Potassium 4.3 MMOL/L (3.5-5.1)
[2017-10-19] MEDS: CLOPIDOGREL 75 MG TABLET PO SCH (09:34)
[2017-10-19] MEDS: PANTOPRAZOLE 40 MG TABLET PO SCH ×2 (09:35→21:38)
[2017-10-19] MEDS: METOPROLOL TARTRATE 25 MG TABLET PO SCH (09:35)
[2017-10-19] MEDS: ASPIRIN EC 325 MG TABLET PO SCH (09:35)
[2017-10-19] MEDS: methIMAzole 5 MG TABLET PO SCH (09:35)
[2017-10-19] MEDS: FUROSEMIDE 40 MG TABLET PO SCH (09:36)
[2017-10-19] MEDS: METHADONE 10 MG TABLET PO SCH ×2 (09:42→21:45)
[2017-10-19] MEDS: CHLORHEXIDINE 0.12% ORAL RINSE 60 ML BOTTLE SWISH/SPIT SCH ×2 (09:54→21:46)
[2017-10-19] MEDS: MORPHINE 10 MG/1 ML VIAL IV PRN (11:40)
[2017-10-19] MEDS: ACETAMINOPHEN 325 MG TABLET PO PRN (11:45)
[2017-10-19] MEDS: PHENYLEPHRINE DRIP 40 MG/250 ML PREMIX IV SCH (13:23)
[2017-10-19] MEDS: ALBUMIN 5% 12.5 GM in PREMIX 1 EACH IV PRN (14:00)
[2017-10-19] MEDS: GABAPENTIN 300 MG CAPSULE PO SCH ×2 (14:56→21:38)
[2017-10-19] MEDS: NITROGLYCERIN DRIP 50 MG/250 ML BOTTLE IV SCH (14:56)
[2017-10-19] MEDS: ATORVASTATIN 40 MG TABLET PO SCH (21:38)
[2017-10-19] MEDS: METOPROLOL TARTRATE 50 MG TABLET PO SCH (21:38)
[2017-10-20] MEDS: ACETAMINOPHEN 325 MG TABLET PO PRN ×2 (07:59→21:18)
[2017-10-20] MEDS: PANTOPRAZOLE 40 MG TABLET PO SCH ×2 (08:00→22:17)
[2017-10-20] MEDS: GABAPENTIN 300 MG CAPSULE PO SCH ×3 (08:00→21:19)
[2017-10-20] MEDS: CLOPIDOGREL 75 MG TABLET PO SCH (08:00)
[2017-10-20] MEDS: ASPIRIN EC 325 MG TABLET PO SCH (08:00)
[2017-10-20 09:08] LABS: Basophils % 0.1 % (0.0-0.8); Eosinophils % 0.1 % (0.00-10.9); Hematocrit 29.2 VOL% (42.0-52.0); Hemoglobin 9.6 GM/DL (14.0-18.0); Immature Granulocytes % 0.5 %; Immature Granulocytes Absolute 0.06 #; Lymphocytes # 1.4 10*3/uL (1.4-4.0); Lymphocytes % 12.3 % (21.2-54.2); Mean Corpuscular HGB Conc 32.9 GM/DL (32-36); Mean Corpuscular Hemoglobin 26 PG (27-34); Mean Platelet Volume 10.2 FL (9.6-12.0); Monocytes # 0.8 10*3/uL (0.11-0.8); Monocytes % 7.1 % (1.7-12.7); Neutrophils # 9.4 10*3/uL (1.4-7.4); Neutrophils % 79.9 % (38.7-73.9); Platelet Count 195 T/CUMM (130-400); Red Blood Count 3.65 MC/CUMM (3.8-5.5); Red Cell Distribution Width 15.2 % (9.3-17.3); White Blood Count 11.7 T/CUMM (4-12)
[2017-10-20 09:25] LABS: Calcium 8.4 MG/DL (8.5-10.1); Magnesium 2.3 MG/DL (1.8-2.4); Osmolality,Calculated 288.8 MOS/KG (273-304); Potassium 3.9 MMOL/L (3.5-5.1)
[2017-10-20] MEDS: METOPROLOL TARTRATE 50 MG TABLET PO SCH ×2 (10:02→21:18)
[2017-10-20] MEDS: methIMAzole 5 MG TABLET PO SCH (10:02)
[2017-10-20] MEDS: FUROSEMIDE 40 MG TABLET PO SCH (10:02)
[2017-10-20] MEDS: METHADONE 10 MG TABLET PO SCH ×2 (10:03→22:13)
[2017-10-20] MEDS: INSULIN REGULAR 100 UNIT/ML SUBCUT SCH ×4 (10:03→22:15)
[2017-10-20] MEDS: CHLORHEXIDINE 0.12% ORAL RINSE 60 ML BOTTLE SWISH/SPIT SCH ×2 (10:06→22:15)
[2017-10-20] MEDS ORDERED: ZALEPLON 5 MG CAPSULE PO PRN (16:29)
[2017-10-20] MEDS ORDERED: guaiFENesin/DM ER 600-30 MG TABLET PO PRN (16:29)
[2017-10-20] MEDS ORDERED: BISACODYL 5 MG TABLET PO PRN (16:29)
[2017-10-20] MEDS ORDERED: diphenhydrAMINE CAP 25 MG CAPSULE PO PRN (16:29)
[2017-10-20] MEDS: ATORVASTATIN 40 MG TABLET PO SCH (21:18)
[2017-10-21] MEDS ORDERED: ALBUTEROL/IPRATROPIUM 3 ML NEB RESP TX ONE (06:57)
[2017-10-21 07:28] LABS: Basophils % 0.3 % (0.0-0.8); Eosinophils # 0.1 10*3/uL (0.0-0.87); Eosinophils % 1.1 % (0.00-10.9); Hematocrit 33.2 VOL% (42.0-52.0); Hemoglobin 10.9 GM/DL (14.0-18.0); Immature Granulocytes % 0.7 %; Immature Granulocytes Absolute 0.08 #; Lymphocytes # 1.8 10*3/uL (1.4-4.0); Lymphocytes % 16.9 % (21.2-54.2); Mean Corpuscular HGB Conc 32.8 GM/DL (32-36); Mean Corpuscular Hemoglobin 26 PG (27-34); Mean Corpuscular Volume 80.4 FL (87-102); Mean Platelet Volume 10.5 FL (9.6-12.0); Monocytes % 8.9 % (1.7-12.7); NRBC # 0.03 10*3/uL; Neutrophils # 7.9 10*3/uL (1.4-7.4); Neutrophils % 72.1 % (38.7-73.9); Platelet Count 257 T/CUMM (130-400); Red Blood Count 4.13 MC/CUMM (3.8-5.5); Red Cell Distribution Width 15.2 % (9.3-17.3); White Blood Count 10.9 T/CUMM (4-12)
[2017-10-21 07:49] LABS: Calcium 8.6 MG/DL (8.5-10.1); Magnesium 2.2 MG/DL (1.8-2.4); Osmolality,Calculated 291.7 MOS/KG (273-304); Potassium 3.8 MMOL/L (3.5-5.1)
[2017-10-21] MEDS: INSULIN REGULAR 100 UNIT/ML SUBCUT SCH ×2 (08:55→12:00)
[2017-10-21] MEDS: methIMAzole 5 MG TABLET PO SCH (08:55)
[2017-10-21] MEDS: GABAPENTIN 300 MG CAPSULE PO SCH (08:56)
[2017-10-21] MEDS: FUROSEMIDE 40 MG TABLET PO SCH (08:56)
[2017-10-21] MEDS: ASPIRIN EC 325 MG TABLET PO SCH (08:56)
[2017-10-21] MEDS: CLOPIDOGREL 75 MG TABLET PO SCH (08:56)
[2017-10-21] MEDS: METOPROLOL TARTRATE 50 MG TABLET PO SCH (08:57)
[2017-10-21] MEDS: PANTOPRAZOLE 40 MG TABLET PO SCH (08:57)
[2017-10-21] MEDS: METHADONE 10 MG TABLET PO SCH (08:57)
[2017-10-21] MEDS: CHLORHEXIDINE 0.12% ORAL RINSE 60 ML BOTTLE SWISH/SPIT SCH (08:59)
[2017-10-21 11:41] VITALS: BP 118/58
[2017-10-21] MEDS ORDERED: INFLUENZA VIRUS VACCINE 0.5 ML SYRINGE IM ONE (14:04)
== END 2017-10-21 14:45 | disposition home health service (06) | DRG 234 ==
LOC: N.CL 10:49 → N.TELES 16:57 → N.CVR 10-17 11:31 → N.ICU 10-18 17:54 → N.TELES 10-19 16:47
PROVIDERS: ADMIT Internal Medicine Cardiovascular Disease; ATTEND Internal Medicine Cardiovascular Disease
PROC: CLCCHCL (ICD-10-PCS; 2017-10-14 13:45)

== ENCOUNTER 2019-09-28 17:45 | Inpatient (IN) ==
[2019-09-28 18:23] LABS: Basophils # 0.1 10*3/uL (0.0-0.2); Basophils % 0.7 % (0.0-0.8); Eosinophils # 0.2 10*3/uL (0.0-0.87); Eosinophils % 1.8 % (0.00-10.9); Hematocrit 40.5 VOL% (42.0-52.0); Hemoglobin 13.8 GM/DL (14.0-18.0); Immature Granulocytes % 0.4 %; Immature Granulocytes Absolute 0.03 #; Lymphocytes # 2.3 10*3/uL (1.4-4.0); Lymphocytes % 27.1 % (21.2-54.2); Mean Corpuscular HGB Conc 34.1 GM/DL (32-36); Mean Corpuscular Volume 92.3 FL (87-102); Mean Platelet Volume 10.4 FL (9.6-12.0); Monocytes % 8.4 % (1.7-12.7); Neutrophils % 61.6 % (38.7-73.9); Platelet Count 210 T/CUMM (130-400); Red Blood Count 4.39 MC/CUMM (3.8-5.5); Red Cell Distribution Width 12.9 % (9.3-17.3); White Blood Count 8.5 T/CUMM (4-12)
[2019-09-28 18:37] LABS: Calcium 8.6 MG/DL (8.5-10.1); Osmolality,Calculated 280.7 MOS/KG (273-304)
[2019-09-28] MEDS ORDERED: MORPHINE 4 MG/1 ML VIAL IV STA (19:10)
[2019-09-28] MEDS ORDERED: methylPREDNISolone SOD SUC 125 MG/2 ML VIAL IV STA (19:10)
[2019-09-28] MEDS ORDERED: ONDANSETRON 4 MG/2 ML VIAL IV STA (19:10)
[2019-09-28] MEDS ORDERED: ALUM/MAG/SIMETH/LIDO VISC 1:1 30 ML BOTTLE PO STA (19:10)
[2019-09-28] MEDS ORDERED: ASPIRIN 325 MG TABLET PO STA (19:10)
[2019-09-28] MEDS ORDERED: NITROGLYCERIN 2% OINT 1 INCH/GM PACK TOP STA (19:10)
[2019-09-28] MEDS ORDERED: ALBUTEROL/IPRATROPIUM 3 ML NEB RESP TX STA (19:10)
[2019-09-28] MEDS ORDERED: PIPERACILLIN/TAZOBACTAM 3,375 MG in SODIUM CHLORIDE 0.9% 100 ML IV STA (20:34)
[2019-09-28 21:01] LABS: Albumin 3.8 G/DL (3.4-5.0); Bilirubin,Total 0.5 MG/DL (0.2-1.0); Calcium 8.7 MG/DL (8.5-10.1); Osmolality,Calculated 281.5 MOS/KG (273-304); Total Protein 6.8 G/DL (6.4-8.3)
[2019-09-28] MEDS ORDERED: NICOTINE 21 MG/24 HR PATCH TRANSDERM PRN (21:10)
[2019-09-28] MEDS ORDERED: LACTULOSE 20 GM/30 ML UDCUP PO PRN (21:10)
[2019-09-28] MEDS ORDERED: ONDANSETRON 4 MG/2 ML VIAL IV PRN (21:10)
[2019-09-28] MEDS ORDERED: ACETAMINOPHEN 325 MG TABLET PO PRN (21:10)
[2019-09-28] MEDS ORDERED: MORPHINE 4 MG/1 ML VIAL IV PRN (21:10)
[2019-09-28] MEDS ORDERED: guaiFENesin/DM ER 600-30 MG TABLET PO PRN (21:10)
[2019-09-28] MEDS ORDERED: diphenhydrAMINE CAP 25 MG CAPSULE PO PRN (21:10)
[2019-09-28] MEDS ORDERED: PIPERACILLIN/TAZOBACTAM 3,375 MG in SODIUM CHLORIDE 0.9% 100 ML IV SCH (22:00)
[2019-09-28 22:08] LABS: Allen Test Positive
[2019-09-28 22:09] LABS: ABG Base Excess 0.4 MMOL/L (-2.5-2.5); ABG HCO3 24.6 MMOL/L (20-26); ABG Oxygen Saturation 90.9 % (95-100); ABG PCO2 37.9 MM HG (35-48); ABG PO2 58.5 MM HG (80-95); ABG TCO2 21.4 MMOL/L (23-27)
[2019-09-28] MEDS ORDERED: DEXTROSE 50% 25 GM/50 ML VIAL IV PRN ×2 (22:23→22:58)
[2019-09-28] MEDS ORDERED: GLUCAGON 1 MG VIAL IM PRN ×2 (22:23→22:58)
[2019-09-28 22:32] LABS: PT Patient Result 10.6 SECS (9.6-12.2)
[2019-09-28] MEDS: SODIUM CHLORIDE 0.9% 1,000 ML IV SCH (23:37)
[2019-09-28] MEDS: LACTULOSE 20 GM/30 ML UDCUP PO SCH (23:46)
[2019-09-29] MEDS: ALBUTEROL/IPRATROPIUM 3 ML NEB RESP TX SCH ×4 (00:51→20:00)
[2019-09-29] MEDS: LACTULOSE 20 GM/30 ML UDCUP PO SCH ×6 (00:55→21:10)
[2019-09-29] MEDS: AZITHROMYCIN INJ 500 MG in SODIUM CHLORIDE 0.9% 250 ML IV SCH (00:55)
[2019-09-29 05:04] LABS: Basophils % 0.1 % (0.0-0.8); Hematocrit 37.5 VOL% (42.0-52.0); Hemoglobin 12.5 GM/DL (14.0-18.0); Immature Granulocytes % 0.4 %; Immature Granulocytes Absolute 0.03 #; Lymphocytes # 0.7 10*3/uL (1.4-4.0); Lymphocytes % 8.4 % (21.2-54.2); Mean Corpuscular HGB Conc 33.3 GM/DL (32-36); Mean Corpuscular Volume 94.7 FL (87-102); Mean Platelet Volume 10.9 FL (9.6-12.0); Monocytes % 1.2 % (1.7-12.7); Neutrophils % 89.9 % (38.7-73.9); Platelet Count 180 T/CUMM (130-400); Red Blood Count 3.96 MC/CUMM (3.8-5.5); Red Cell Distribution Width 12.7 % (9.3-17.3); White Blood Count 8.2 T/CUMM (4-12)
[2019-09-29 05:36] LABS: Albumin 3.4 G/DL (3.4-5.0); Bilirubin,Total 0.7 MG/DL (0.2-1.0); Calcium 8.3 MG/DL (8.5-10.1); Total Protein 6.4 G/DL (6.4-8.3)
[2019-09-29 06:05] LABS: Apearance,Urine CLEAR (Clear); Bilirubin,Urine Negative (Negative); Blood, Urine Negative (Negative); Glucose,Urine (UA) >=500 mg/dL (Negative); Ketones,Urine 5 mg/dL (Negative); Mucus,Urine Occasional /LPF (Occasional); Nitrite,Urine Negative (Negative); Protein,Urine Negative; RBC,Urine 1 /HPF (0-4); Squamous Epithelial Cell,Urine Occasional /HPF (0-10); Urine Color Yellow (Yellow); Urine Specific Gravity 1.023 (1.001-1.035); Urine Urobilinogen < 2.0 EU/DL (0.2-1.0); WBC,Urine <1 /HPF (0-6)
[2019-09-29 06:11] LABS: Barbiturates Screen,Urine Negative (Negative); Benzodiazepines Screen,Urine Negative (Negative); Cannabinoid Screen,Urine Negative (Negative); Opiate Screen,Urine Negative (Negative); Phencyclidine Screen,Urine Negative (Negative)
[2019-09-29] MEDS ORDERED: INSULIN REGULAR 100 UNIT/ML SUBCUT SCH (07:30)
[2019-09-29] MEDS: glipiZIDE 10 MG TABLET PO SCH ×2 (08:30→15:43)
[2019-09-29] MEDS: FINASTERIDE 5 MG TABLET PO SCH (08:30)
[2019-09-29] MEDS: TAMSULOSIN 0.4 MG CAPSULE PO SCH (08:30)
[2019-09-29] MEDS: ASPIRIN EC 325 MG TABLET PO SCH (08:31)
[2019-09-29] MEDS: amLODIPine 10 MG TABLET PO SCH (08:31)
[2019-09-29] MEDS: carvediloL 12.5 MG TABLET PO SCH ×2 (08:31→16:25)
[2019-09-29] MEDS: GABAPENTIN 400 MG CAPSULE PO SCH ×3 (08:31→21:06)
[2019-09-29] MEDS: FERROUS SULFATE 325 MG TABLET PO SCH (08:31)
[2019-09-29] MEDS: cefTRIAXone 1,000 MG in SYRINGE 1 EACH IV SCH (08:33)
[2019-09-29] MEDS: metFORMIN 500 MG TABLET PO SCH ×2 (08:39→21:06)
[2019-09-29] MEDS: INSULIN REGULAR 100 UNIT/ML SUBCUT SCH ×4 (08:39→21:07)
[2019-09-29] MEDS: FUROSEMIDE 20 MG TABLET PO SCH (08:50)
[2019-09-29] MEDS ORDERED: ROSUVASTATIN 10 MG TABLET PO SCH (09:00)
[2019-09-29] MEDS: SODIUM CHLORIDE 0.9% 1,000 ML IV SCH (15:49)
[2019-09-29] MEDS ORDERED: INSULIN GLARGINE 100 UNIT/ML SUBCUT SCH (21:00)
[2019-09-29] MEDS ORDERED: MONTELUKAST 10 MG TABLET PO SCH (21:00)
[2019-09-30] MEDS: ALBUTEROL/IPRATROPIUM 3 ML NEB RESP TX SCH ×2 (01:08→07:04)
[2019-09-30] MEDS: SODIUM CHLORIDE 0.9% 1,000 ML IV SCH (05:49)
[2019-09-30] MEDS: metFORMIN 500 MG TABLET PO SCH (09:16)
[2019-09-30] MEDS: amLODIPine 10 MG TABLET PO SCH (09:16)
[2019-09-30] MEDS: GABAPENTIN 400 MG CAPSULE PO SCH (09:17)
[2019-09-30] MEDS: FERROUS SULFATE 325 MG TABLET PO SCH (09:17)
[2019-09-30] MEDS: ASPIRIN EC 325 MG TABLET PO SCH (09:17)
[2019-09-30] MEDS: glipiZIDE 10 MG TABLET PO SCH (09:17)
[2019-09-30] MEDS: FINASTERIDE 5 MG TABLET PO SCH (09:17)
[2019-09-30] MEDS: TAMSULOSIN 0.4 MG CAPSULE PO SCH (09:17)
[2019-09-30] MEDS: carvediloL 12.5 MG TABLET PO SCH (09:17)
[2019-09-30] MEDS: cefTRIAXone 1,000 MG in SYRINGE 1 EACH IV SCH (09:17)
[2019-09-30] MEDS: FUROSEMIDE 20 MG TABLET PO SCH (09:17)
[2019-09-30] MEDS: AZITHROMYCIN INJ 500 MG in SODIUM CHLORIDE 0.9% 250 ML IV SCH (09:23)
[2019-09-30] MEDS: INSULIN REGULAR 100 UNIT/ML SUBCUT SCH ×2 (09:48→12:06)
[2019-09-30 11:30] VITALS: BP 128/73
== END 2019-09-30 12:20 | disposition home or self-care (01) | DRG 195 ==
LOC: N.EDINP 17:45 → N.ED 17:45 → N.2E 22:51
PROVIDERS: ADMIT Internal Medicine; ATTEND Internal Medicine

== ENCOUNTER 2020-01-04 18:09 | Observation (INO) ==
[2020-01-04 18:27] LABS: Basophils # 0.1 10*3/uL (0.0-0.2); Basophils % 0.9 % (0.0-0.8); Eosinophils # 0.1 10*3/uL (0.0-0.87); Eosinophils % 1.8 % (0.00-10.9); Hemoglobin 13.7 GM/DL (14.0-18.0); Immature Granulocytes % 0.3 %; Immature Granulocytes Absolute 0.02 #; Lymphocytes # 2.4 10*3/uL (1.4-4.0); Mean Corpuscular HGB Conc 34.3 GM/DL (32-36); Mean Corpuscular Volume 90.1 FL (87-102); Mean Platelet Volume 10.1 FL (9.6-12.0); Monocytes % 7.8 % (1.7-12.7); Neutrophils % 53.2 % (38.7-73.9); Platelet Count 172 T/CUMM (130-400); Red Blood Count 4.44 MC/CUMM (3.8-5.5); Red Cell Distribution Width 13.5 % (9.3-17.3); White Blood Count 6.7 T/CUMM (4-12)
[2020-01-04 18:36] LABS: PT Patient Result 10.6 SECS (9.6-12.2); Partial Thromboplastin Time 24.3 SECS (20.8-36.0)
[2020-01-04 18:53] LABS: Albumin 3.6 G/DL (3.4-5.0); Bilirubin,Total 0.5 MG/DL (0.2-1.0); Calcium 8.9 MG/DL (8.5-10.1); Osmolality,Calculated 287.8 MOS/KG (273-304); Total Protein 6.3 G/DL (6.4-8.3)
[2020-01-04 19:04] LABS: Alanine Aminotransferase 29 U/L (16-61); Albumin 3.5 G/DL (3.4-5.0); Alkaline Phosphatase 65 U/L (45-117); Aspartate Amino Transferase 20 U/L (0-37); Blood Urea Nitrogen 14 MG/DL (7-18); Calcium 8.9 MG/DL (8.5-10.1); Estimated Glom Filtration Rate 75 ML/MIN; Glucose 346 MG/DL (74-106); Osmolality,Calculated 289.7 MOS/KG (273-304); Total Protein 6.5 G/DL (6.4-8.3); Troponin I < 0.015 NG/ML (0.00-0.045)
[2020-01-04 19:05] LABS: Apearance,Urine CLEAR (Clear); Bilirubin,Urine Negative (Negative); Blood, Urine Negative (Negative); Glucose,Urine (UA) >=500 mg/dL (Negative); Ketones,Urine Negative (Negative); Nitrite,Urine Negative (Negative); Protein,Urine Negative; RBC,Urine 4 /HPF (0-4); Urine Color Yellow (Yellow); Urine Specific Gravity 1.027 (1.001-1.035); Urine Urobilinogen < 2.0 EU/DL (0.2-1.0); WBC,Urine 1 /HPF (0-6)
[2020-01-04 19:14] LABS: Barbiturates Screen,Urine Negative (Negative); Benzodiazepines Screen,Urine Negative (Negative); Cannabinoid Screen,Urine Negative (Negative); Opiate Screen,Urine Negative (Negative); Phencyclidine Screen,Urine Negative (Negative)
[2020-01-04] MEDS ORDERED: cefTRIAXone 1,000 MG in SODIUM CHLORIDE 0.9% 100 ML IV STA (19:36)
[2020-01-04] MEDS ORDERED: ALBUTEROL/IPRATROPIUM 3 ML NEB RESP TX STA (19:36)
[2020-01-04] MEDS ORDERED: AZITHROMYCIN INJ 500 MG in SODIUM CHLORIDE 0.9% 250 ML IV STA (19:36)
[2020-01-04] MEDS ORDERED: ONDANSETRON 4 MG/2 ML VIAL IV PRN (20:25)
[2020-01-04] MEDS ORDERED: GLUCAGON 1 MG VIAL IM PRN (20:25)
[2020-01-04] MEDS ORDERED: ACETAMINOPHEN 325 MG TABLET PO PRN (20:25)
[2020-01-04] MEDS ORDERED: MAGNESIUM SULF RIDER 4 GM in PREMIX 1 EACH IV PRN (20:34)
[2020-01-04] MEDS ORDERED: MAGNESIUM SULF RIDER 2 GM in PREMIX 1 EACH IV PRN (20:34)
[2020-01-04] MEDS ORDERED: DEXTROSE 10% 250 ML BAG IV PRN (21:07)
[2020-01-04] MEDS: INSULIN LISPRO 100 UNIT/ML SUBCUT SCH (22:31)
[2020-01-04] MEDS: SODIUM CHLOR 0.9% KCL 20 MEQ 20 MEQ/1,000 ML BAG IV SCH (23:39)
[2020-01-04] MEDS: ENOXAPARIN 40 MG/0.4 ML SYRINGE SUBCUT SCH (23:39)
[2020-01-04] MEDS: MONTELUKAST 10 MG TABLET PO SCH (23:42)
[2020-01-05] MEDS: ALBUTEROL/IPRATROPIUM 3 ML NEB RESP TX SCH ×4 (00:46→19:30)
[2020-01-05 04:42] LABS: Basophils % 0.7 % (0.0-0.8); Eosinophils # 0.1 10*3/uL (0.0-0.87); Eosinophils % 1.8 % (0.00-10.9); Hematocrit 37.4 VOL% (42.0-52.0); Hemoglobin 12.8 GM/DL (14.0-18.0); Immature Granulocytes % 0.2 %; Immature Granulocytes Absolute 0.01 #; Lymphocytes % 35.7 % (21.2-54.2); Mean Corpuscular HGB Conc 34.2 GM/DL (32-36); Mean Corpuscular Volume 89.5 FL (87-102); Mean Platelet Volume 10.2 FL (9.6-12.0); Monocytes % 10.2 % (1.7-12.7); Neutrophils % 51.4 % (38.7-73.9); Platelet Count 158 T/CUMM (130-400); Red Blood Count 4.18 MC/CUMM (3.8-5.5); Red Cell Distribution Width 13.4 % (9.3-17.3); White Blood Count 5.6 T/CUMM (4-12)
[2020-01-05 05:12] LABS: Calcium 8.6 MG/DL (8.5-10.1); Osmolality,Calculated 279.3 MOS/KG (273-304); Risk Ratio 3.03; VLDL CHOLESTEROL 15.6 MG/DL
[2020-01-05] MEDS: LEVOTHYROXINE 75 MCG TABLET PO SCH (05:37)
[2020-01-05] MEDS ORDERED: ROSUVASTATIN 10 MG TABLET PO SCH (09:00)
[2020-01-05] MEDS: FERROUS SULFATE 325 MG TABLET PO SCH (10:10)
[2020-01-05] MEDS: amLODIPine 10 MG TABLET PO SCH (10:10)
[2020-01-05] MEDS: FUROSEMIDE 20 MG TABLET PO SCH (10:10)
[2020-01-05] MEDS: FINASTERIDE 5 MG TABLET PO SCH (10:10)
[2020-01-05] MEDS: carvediloL 12.5 MG TABLET PO SCH ×2 (10:10→17:24)
[2020-01-05] MEDS: GABAPENTIN 400 MG CAPSULE PO SCH ×3 (10:11→21:56)
[2020-01-05] MEDS: PANTOPRAZOLE 40 MG TABLET PO SCH (10:11)
[2020-01-05] MEDS: TAMSULOSIN 0.4 MG CAPSULE PO SCH (10:11)
[2020-01-05] MEDS: INSULIN LISPRO 100 UNIT/ML SUBCUT SCH ×4 (12:08→22:10)
[2020-01-05] MEDS: SODIUM CHLOR 0.9% KCL 20 MEQ 20 MEQ/1,000 ML BAG IV SCH ×2 (13:20→23:43)
[2020-01-05] MEDS ORDERED: POTASSIUM CHLORIDE 20 MEQ TABLET PO ONE (13:21)
[2020-01-05] MEDS ORDERED: SERTRALINE 25 MG TABLET PO ONE (16:21)
[2020-01-05] MEDS ORDERED: AZITHROMYCIN INJ 500 MG in SODIUM CHLORIDE 0.9% 250 ML IV SCH (20:30)
[2020-01-05] MEDS ORDERED: cefTRIAXone 1,000 MG in SYRINGE 1 EACH IV SCH (20:30)
[2020-01-05] MEDS ORDERED: SERTRALINE 25 MG TABLET PO SCH (21:00)
[2020-01-05] MEDS ORDERED: INSULIN GLARGINE 100 UNIT/ML SUBCUT SCH (21:00)
[2020-01-05] MEDS: MONTELUKAST 10 MG TABLET PO SCH (21:55)
[2020-01-05] MEDS: ENOXAPARIN 40 MG/0.4 ML SYRINGE SUBCUT SCH (21:57)
[2020-01-06] MEDS: ALBUTEROL/IPRATROPIUM 3 ML NEB RESP TX SCH ×3 (00:28→13:38)
[2020-01-06] MEDS: INSULIN LISPRO 100 UNIT/ML SUBCUT SCH ×3 (01:16→12:53)
[2020-01-06] MEDS: SODIUM CHLOR 0.9% KCL 20 MEQ 20 MEQ/1,000 ML BAG IV SCH (04:05)
[2020-01-06 04:41] LABS: Basophils % 0.8 % (0.0-0.8); Eosinophils # 0.1 10*3/uL (0.0-0.87); Hemoglobin 13.1 GM/DL (14.0-18.0); Immature Granulocytes % 0.2 %; Immature Granulocytes Absolute 0.01 #; Lymphocytes # 1.9 10*3/uL (1.4-4.0); Lymphocytes % 38.3 % (21.2-54.2); Mean Corpuscular HGB Conc 33.6 GM/DL (32-36); Mean Platelet Volume 10.2 FL (9.6-12.0); Monocytes % 8.8 % (1.7-12.7); Neutrophils % 49.9 % (38.7-73.9); Platelet Count 157 T/CUMM (130-400); Red Blood Count 4.24 MC/CUMM (3.8-5.5); Red Cell Distribution Width 13.4 % (9.3-17.3)
[2020-01-06 05:17] LABS: Osmolality,Calculated 284.3 MOS/KG (273-304)
[2020-01-06] MEDS: LEVOTHYROXINE 75 MCG TABLET PO SCH (05:52)
[2020-01-06] MEDS ORDERED: ASPIRIN EC 325 MG TABLET PO SCH (09:00)
[2020-01-06] MEDS: FUROSEMIDE 20 MG TABLET PO SCH (09:08)
[2020-01-06] MEDS: PANTOPRAZOLE 40 MG TABLET PO SCH (09:08)
[2020-01-06] MEDS: FINASTERIDE 5 MG TABLET PO SCH (09:08)
[2020-01-06] MEDS: GABAPENTIN 400 MG CAPSULE PO SCH (09:08)
[2020-01-06] MEDS: carvediloL 12.5 MG TABLET PO SCH (09:08)
[2020-01-06] MEDS: TAMSULOSIN 0.4 MG CAPSULE PO SCH (09:08)
[2020-01-06] MEDS: FERROUS SULFATE 325 MG TABLET PO SCH (09:09)
[2020-01-06] MEDS: amLODIPine 10 MG TABLET PO SCH (09:09)
[2020-01-06 12:27] VITALS: BP 169/84
== END 2020-01-06 16:50 | disposition home or self-care (01) ==
LOC: N.EDINP 18:09 → N.ED 18:09 → SUATTDRO 20:25 → N.TELEN 22:49
PROVIDERS: ADMIT Internal Medicine; ATTEND Internal Medicine

== ENCOUNTER 2021-10-08 12:38 | Inpatient (IN) ==
[2021-10-08 16:42] LABS: Basophils % 0.5 % (0.0-0.8); Eosinophils # 0.1 10*3/uL (0.0-0.87); Eosinophils % 0.8 % (0.00-10.9); Hematocrit 44.5 VOL% (42.0-52.0); Hemoglobin 15.3 GM/DL (14.0-18.0); Immature Granulocytes % 0.2 %; Immature Granulocytes Absolute 0.01 #; Lymphocytes # 2.1 10*3/uL (1.4-4.0); Lymphocytes % 33.9 % (21.2-54.2); Mean Corpuscular HGB Conc 34.4 GM/DL (32-36); Mean Corpuscular Volume 89.2 FL (87-102); Mean Platelet Volume 10.3 FL (9.6-12.0); Monocytes % 9.5 % (1.7-12.7); Neutrophils % 55.1 % (38.7-73.9); Platelet Count 180 T/CUMM (130-400); Red Blood Count 4.99 MC/CUMM (3.8-5.5); Red Cell Distribution Width 12.5 % (9.3-17.3); White Blood Count 6.2 T/CUMM (4-12)
[2021-10-08 17:13] LABS: Albumin 4.1 G/DL (3.4-5.0); Calcium 9.8 MG/DL (8.5-10.1); Osmolality,Calculated 278.7 MOS/KG (273-304); Potassium 3.5 MMOL/L (3.5-5.1); Total Protein 7.7 G/DL (6.4-8.2)
[2021-10-08] MEDS ORDERED: ONDANSETRON 4 MG/2 ML VIAL IV ONE (17:50)
[2021-10-08] MEDS ORDERED: HYDROmorphone 2 MG/1 ML VIAL IV STA (17:50)
[2021-10-08 17:53] LABS: Bilirubin,Urine Negative (Negative); Blood, Urine Negative (Negative); Glucose,Urine (UA) Negative (Negative); Hyaline Casts,Urine 9 /LPF (0-3); Ketones,Urine Negative (Negative); Mucus,Urine Occasional /LPF (Occasional); Nitrite,Urine Negative (Negative); Protein,Urine 30 MG/DL; RBC,Urine 2 /HPF (0-4); Squamous Epithelial Cell,Urine Occasional /HPF (0-10); Urine Appearance CLEAR (Clear); Urine Color Yellow (Yellow); Urine Specific Gravity 1.027 (1.001-1.035); Urine Urobilinogen < 2.0 EU/DL (0.2-1.0)
[2021-10-08] MEDS ORDERED: GLUCAGON 1 MG VIAL IM PRN ×2 (19:29)
[2021-10-08] MEDS ORDERED: DEXTROSE 50% 25 GM/50 ML VIAL IV PRN (19:29)
[2021-10-08] MEDS ORDERED: ONDANSETRON 4 MG/2 ML VIAL IV PRN (19:29)
[2021-10-08] MEDS ORDERED: PROMETHAZINE 25 MG/1 ML VIAL IM PRN (19:29)
[2021-10-08] MEDS ORDERED: ACETAMINOPHEN 325 MG TABLET PO PRN (19:29)
[2021-10-08] MEDS ORDERED: DEXTROSE 50% 25 GM/50 ML SYRINGE IV PRN (19:37)
[2021-10-08] MEDS ORDERED: glipiZIDE 10 MG TABLET PO SCH (21:00)
[2021-10-08] MEDS: carvediloL 12.5 MG TABLET PO SCH (22:02)
[2021-10-08] MEDS: GABAPENTIN 400 MG CAPSULE PO SCH (22:02)
[2021-10-08] MEDS: INSULIN LISPRO 100 UNIT/ML SUBCUT SCH (22:02)
[2021-10-08] MEDS: ENOXAPARIN 40 MG/0.4 ML SYRINGE SUBCUT SCH (22:02)
[2021-10-08] MEDS: LACTATED RINGERS 1,000 ML IV SCH (22:03)
[2021-10-08] MEDS: HYDROmorphone 2 MG/1 ML VIAL IV PRN (23:54)
[2021-10-09 05:03] LABS: Basophils % 0.6 % (0.0-0.8); Eosinophils # 0.1 10*3/uL (0.0-0.87); Eosinophils % 1.2 % (0.00-10.9); Hematocrit 38.8 VOL% (42.0-52.0); Hemoglobin 13.1 GM/DL (14.0-18.0); Immature Granulocytes % 0.3 %; Immature Granulocytes Absolute 0.02 #; Lymphocytes # 1.9 10*3/uL (1.4-4.0); Lymphocytes % 28.7 % (21.2-54.2); Mean Corpuscular HGB Conc 33.8 GM/DL (32-36); Mean Corpuscular Volume 90.4 FL (87-102); Mean Platelet Volume 10.7 FL (9.6-12.0); Monocytes % 8.7 % (1.7-12.7); Neutrophils % 60.5 % (38.7-73.9); Platelet Count 150 T/CUMM (130-400); Red Blood Count 4.29 MC/CUMM (3.8-5.5); Red Cell Distribution Width 12.4 % (9.3-17.3); White Blood Count 6.6 T/CUMM (4-12)
[2021-10-09 05:34] LABS: Calcium 8.6 MG/DL (8.5-10.1); Osmolality,Calculated 286.5 MOS/KG (273-304); Potassium 4.1 MMOL/L (3.5-5.1); Risk Ratio 2.3; Thyroid Stimulating Hormone 2.73 uIU/ml (0.358-3.74); VLDL Cholesterol 20.4 MG/DL
[2021-10-09] MEDS: LACTATED RINGERS 1,000 ML IV SCH ×3 (06:20→19:21)
[2021-10-09 09:09] LABS: PT Patient Result 11.6 SECS (10.5-12.0)
[2021-10-09] MEDS: INSULIN LISPRO 100 UNIT/ML SUBCUT SCH ×4 (09:16→21:08)
[2021-10-09] MEDS: VALSARTAN 80 MG TABLET PO SCH (10:52)
[2021-10-09] MEDS: TAMSULOSIN 0.4 MG CAPSULE PO SCH (10:52)
[2021-10-09] MEDS: GABAPENTIN 400 MG CAPSULE PO SCH ×3 (10:52→21:07)
[2021-10-09] MEDS: FERROUS SULFATE 325 MG TABLET PO SCH (10:52)
[2021-10-09] MEDS: carvediloL 12.5 MG TABLET PO SCH ×2 (10:52→21:08)
[2021-10-09] MEDS: FUROSEMIDE 20 MG TABLET PO SCH (10:52)
[2021-10-09] MEDS: amLODIPine 2.5 MG TABLET PO SCH (10:52)
[2021-10-09] MEDS: FINASTERIDE 5 MG TABLET PO SCH (10:53)
[2021-10-09] MEDS: PANTOPRAZOLE 40 MG TABLET PO SCH (10:53)
[2021-10-09] MEDS: MONTELUKAST 10 MG TABLET PO SCH (10:53)
[2021-10-09] MEDS: HYDROmorphone 2 MG/1 ML VIAL IV PRN (15:45)
[2021-10-09] MEDS ORDERED: ROSUVASTATIN 10 MG TABLET PO SCH (21:00)
[2021-10-09] MEDS: ENOXAPARIN 40 MG/0.4 ML SYRINGE SUBCUT SCH (21:07)
[2021-10-10] MEDS: LACTATED RINGERS 1,000 ML IV SCH ×2 (04:22→05:26)
[2021-10-10] MEDS: GABAPENTIN 400 MG CAPSULE PO SCH (08:55)
[2021-10-10] MEDS: amLODIPine 2.5 MG TABLET PO SCH (08:55)
[2021-10-10] MEDS: VALSARTAN 80 MG TABLET PO SCH (08:55)
[2021-10-10] MEDS: MONTELUKAST 10 MG TABLET PO SCH (08:56)
[2021-10-10] MEDS: FINASTERIDE 5 MG TABLET PO SCH (08:56)
[2021-10-10] MEDS: FUROSEMIDE 20 MG TABLET PO SCH (08:56)
[2021-10-10] MEDS: PANTOPRAZOLE 40 MG TABLET PO SCH (08:56)
[2021-10-10] MEDS: carvediloL 12.5 MG TABLET PO SCH (08:56)
[2021-10-10] MEDS: FERROUS SULFATE 325 MG TABLET PO SCH (08:56)
[2021-10-10] MEDS: TAMSULOSIN 0.4 MG CAPSULE PO SCH (11:25)
[2021-10-10] MEDS: INSULIN LISPRO 100 UNIT/ML SUBCUT SCH (11:25)
[2021-10-10 11:29] VITALS: BP 136/71
== END 2021-10-10 15:43 | disposition home health service (06) | DRG 439 ==
LOC: N.EDINP 12:38 → N.ED 12:38 → SUATTDRO 19:29 → N.EDINP 20:57 → N.3E 21:06 → SUATTDRO 10-09 08:49
PROVIDERS: ADMIT Internal Medicine; ATTEND Internal Medicine